=== PATIENT | female | born 1940 | race Asian ===

== ENCOUNTER 2017-05-19 09:29 | Observation (INO) | payer OTHER ==
[2017-05-19] MEDS ORDERED: SODIUM CHLORIDE 250 ML IV STA (10:12)
[2017-05-19 10:54] LABS: BASOPHIL 0.3 % (0-2.0); EOSINOPHIL 2.2 % (0-4.5); MCH 33.4 pg (25.7-33.7); MCHC 32.5 g/dl (32.0-36.0); MEAN CELL VOLUME 102.8 fl (80-96); MEAN PLT VOLUME 8.9 fl (7.5-11.1); PLATELET COUNT 89 K/MM3 (134-434); RDW 18.6 % (11.6-15.6); WHITE BLOOD COUNT 4.1 K/mm3 (4.0-10.0)
--- NOTE | 2017-05-19 11:09 | PDOC ---
History of Present Illness - History of Present Illness Initial Comments: 05/19/17 11:04 "The patient is a 76 year old female, with a significant past medical history of ESRD(on dialysis M,W,F), Hepatitis B, Hepatocellular carcinoma (s/p radiation therapy and embolization), hypertension, and hyperlipidemia, who presents to the Emergency Department from [facility] for evaluation of tachycardia since this morning. Per EMS the patients heart rate was 108 bpm during transport. Patient reports she does not know why she was brought into the hospital today as she has no complaints. She denies any chest pain, shortness of breath, diaphoresis or palpitations. As per daughter she does not have any history of arrhythmias. Pt was last seen by her motor coach tour operator a few months ago when she was cleared for her embolization procedure. She denies any fever, chills, or cough. She denies any abdominal pain , nausea, vomiting, diarrhea, constipation, or changes in urination patterns. She denies any recent travel or sick contacts. Pt does note L shoulder pain that she has had for 10 days since she tripped and fell. Denies headstrike/LOC. Denies BENAVIDEZ/N/V. Pt received 3 hours of HD today. She states that she typically get 4 hours. Allergies: NKDA Past Surgical History: Social History: Patient speaks Kazakh. Non smoker. No ETOH or recreational drug use. PCP: Dr. Alisson Bowens ([phone]) Dividend Clerk: Dr. Mary Anne Mcbride " <Vickey Walker - Last Filed: 05/19/17 12:43> <Danielle Hobbs - Last Filed: 05/19/17 13:37> - General Chief Complaint: Tachycardia Stated Complaint: TACHYCARDIA Time Seen by Provider: 05/19/17 09:32 Past History - Past Medical History Dialysis: Yes (M-W-F) Liver Disease: Yes (HEP B) - Suicide/Smoking/Psychosocial Hx Smoking History: Never smoked <Vickey Walker - Last Filed: 05/19/17 12:43> <Danielle Hobbs - Last Filed: 05/19/17 13:37> - Past Medical History Allergies/Adverse Reactions: Allergies Allergy/AdvReac Type Severity Reaction Status Date / Time No Known Allergies Allergy Verified 05/19/17 09:59 Home Medications: Ambulatory Orders Hydromorphone [Dilaudid -] 2 mg PO BID 05/19/17 Review of Systems - Review of Systems Comments:: 05/19/17 11:06 "GENERAL/CONSTITUTIONAL: No fever or chills. No weakness. HEAD, EYES, EARS, NOSE AND THROAT: No change in vision. No ear pain or discharge. No sore throat. CARDIOVASCULAR: No chest pain or shortness of breath. RESPIRATORY: No cough, wheezing, or hemoptysis. GASTROINTESTINAL: No nausea, vomiting, diarrhea or constipation. GENITOURINARY: No dysuria, frequency, or change in urination. MUSCULOSKELETAL: Yes: left shoulder pain. No other joint or muscle swelling or pain. No neck or back pain. SKIN: No rash NEUROLOGIC: No headache, vertigo, loss of consciousness, or change in strength/ sensation. ENDOCRINE: No increased thirst. No abnormal weight change. HEMATOLOGIC/LYMPHATIC: No anemia, easy bleeding, or history of blood clots. ALLERGIC/IMMUNOLOGIC: No hives or skin allergy." <Vickey Walker - Last Filed: 05/19/17 12:43> *Physical Exam - Vital Signs Last Vital Signs Temp Pulse Resp BP Pulse Ox 98.1 F 99 H 18 140/80 97 05/19/17 09:32 05/19/17 09:32 05/19/17 09:32 05/19/17 09:32 05/19/17 09:32 - Physical Exam Comments: 05/19/17 11:07 "GENERAL: Awake, alert, and fully oriented, in no acute distress HEAD: No signs of trauma EYES: PERRLA, EOMI, sclera anicteric, conjunctiva clear ENT: Auricles normal inspection, hearing grossly normal, nares patent, oropharynx clear without exudates. Moist mucosa NECK: Nontender, no stepoffs, Normal ROM, supple, no lymphadenopathy, JVD, or masses LUNGS: Breath sounds equal, clear to auscultation bilaterally. No wheezes, and no crackles HEART: irregularly irregular, normal S1 and S2, no murmurs, rubs or gallops ABDOMEN: Soft, nontender, normoactive bowel sounds. No guarding, no rebound. No masses EXTREMITIES: Normal range of motion, no edema. No clubbing or cyanosis. No cords, erythema, or tenderness NEUROLOGICAL: Cranial nerves II through XII intact. 5/5 strength and sensation in all extremities, Normal speech, normal gait SKIN: Warm, Dry, normal turgor, no rashes or lesions noted. " <Ou,Vickey - Last Filed: 05/19/17 12:43> - Vital Signs Last Vital Signs Temp Pulse Resp BP Pulse Ox 98.1 F 99 H 18 140/80 97 05/19/17 09:32 05/19/17 09:32 05/19/17 09:32 05/19/17 09:32 05/19/17 09:32 <Danielle Hobbs - Last Filed: 05/19/17 13:37> Heart Score/ECG Review - ECG Impressions Comment:: 05/19/17 11:08 atrial fibrillation with rate 108, no CARMELO/STDs, no TWIs, axis wnl <Ou,Vickey - Last Filed: 05/19/17 12:43> ED Treatment Course - LABORATORY CBC & Chemistry Diagram: 05/19/17 10:10 05/19/17 10:35 - ADDITIONAL ORDERS Additional order review: 05/19/17 10:10 RBC 3.43 L MCV 102.8 H MCHC 32.5 RDW 18.6 H MPV 8.9 Neutrophils % 70.0 Lymphocytes % 10.5 Monocytes % 17.0 H Eosinophils % 2.2 Basophils % 0.3 - RADIOLOGY Radiology Studies Ordered: Category Date Time Status CHEST PA & LAT [RAD] Stat Radiology 05/19/17 10:11 Ordered SHOULDER-LEFT [RAD] Stat Radiology 05/19/17 10:24 Ordered - Medications Given in the ED: ED Medications Discontinued Medications Generic Name Dose Route Start Last Admin Trade Name Freq PRN Reason Stop Dose Admin Sodium Chloride 250 mls @ 1,000 mls/hr 05/19/17 10:12 05/19/17 10:14 Normal Saline - IV 05/19/17 10:26 1,000 mls/hr ASDIR STA Administration <Ou,Vickey - Last Filed: 05/19/17 12:43> - LABORATORY CBC & Chemistry Diagram: 05/19/17 10:10 05/19/17 10:35 - ADDITIONAL ORDERS Additional order review: Laboratory Results 05/19/17 05/19/17 05/19/17 10:35 10:35 10:35 PT with INR 11.40 INR 1.01 PTT (Actin FS) 29.3 Sodium 134 L Potassium 3.5 Chloride 95 L Carbon Dioxide 28 Anion Gap 11 BUN 23 H Creatinine 3.7 H Creat Clearance w eGFR 11.91 Random Glucose 335 H* Calcium 8.9 Total Bilirubin 0.5 AST 82 H ALT 68 Alkaline Phosphatase 393 H Creatine Kinase 31 Troponin I 0.07 H B-Natriuretic Peptide 93657.38 H Total Protein 8.5 H Albumin 3.0 L TSH Blood Type Antibody Screen 05/19/17 05/19/17 10:11 10:10 PT with INR INR PTT (Actin FS) Sodium Potassium Chloride Carbon Dioxide Anion Gap BUN Creatinine Creat Clearance w eGFR Random Glucose Calcium Total Bilirubin AST ALT Alkaline Phosphatase Creatine Kinase Troponin I B-Natriuretic Peptide Total Protein Albumin TSH 1.02 Blood Type A POSITIVE Antibody Screen Negative 05/19/17 10:10 RBC 3.43 L MCV 102.8 H MCHC 32.5 RDW 18.6 H MPV 8.9 Neutrophils % 70.0 Lymphocytes % 10.5 Monocytes % 17.0 H Eosinophils % 2.2 Basophils % 0.3 - RADIOLOGY Radiograph Interpretation: 05/19/17 13:36 EXAM: Shoulder XR INTERPRETED BY: Dr. Mensah REVIEWED BY: Dr. Walker IMPRESSION: No acute pathology. - Medications Given in the ED: ED Medications Discontinued Medications Generic Name Dose Route Start Last Admin Trade Name Freq PRN Reason Stop Dose Admin Diltiazem HCl 30 mg 05/19/17 11:14 05/19/17 11:17 Cardizem - PO 05/19/17 11:15 30 mg ONCE ONE Administration Sodium Chloride 250 mls @ 1,000 mls/hr 05/19/17 10:12 05/19/17 10:14 Normal Saline - IV 05/19/17 10:26 1,000 mls/hr ASDIR STA Administration <Danielle Hobbs - Last Filed: 05/19/17 13:37> Medical Decision Making - Medical Decision Making 05/19/17 11:08 76 F with new onset afib. Pt asymptomatic at this time. It is possible pt went into afib 2/2 fluid shifts during HD. However, pt has not had EKG for weeks, and we cannot confirm that pt has not been in afib previously. Given unknown time of onset, will opt for rate control rather than rhythm control. Pt with chadsvasc score of 5 and will need to be started on AC. - Labs - 250 cc bolus to see if tachycardia is fluid responsive, as pt was just dialyzed - Rate control - echo - Admit tele 05/19/17 12:41 CBC,CMP WBC 4.1 K/mm3 (4.0-10.0) 05/19/17 10:10 RBC 3.43 M/mm3 (3.60-5.2) L 05/19/17 10:10 Hgb 11.5 GM/dL (10.7-15.3) 05/19/17 10:10 Hct 35.2 % (32.4-45.2) 05/19/17 10:10 MCV 102.8 fl (80-96) H 05/19/17 10:10 MCH 33.4 pg (25.7-33.7) 05/19/17 10:10 MCHC 32.5 g/dl (32.0-36.0) 05/19/17 10:10 RDW 18.6 % (11.6-15.6) H 05/19/17 10:10 Plt Count 89 K/MM3 (134-434) L 05/19/17 10:10 MPV 8.9 fl (7.5-11.1) 05/19/17 10:10 Neutrophils % 70.0 % (42.8-82.8) 05/19/17 10:10 Lymphocytes % 10.5 % (8-40) 05/19/17 10:10 Monocytes % 17.0 % (3.8-10.2) H 05/19/17 10:10 Eosinophils % 2.2 % (0-4.5) 05/19/17 10:10 Basophils % 0.3 % (0-2.0) 05/19/17 10:10 Sodium 134 mmol/L (136-145) L 05/19/17 10:35 Potassium 3.5 mmol/L (3.5-5.1) 05/19/17 10:35 Chloride 95 mmol/L (98-107) L 05/19/17 10:35 Carbon Dioxide 28 mmol/L (21-32) 05/19/17 10:35 Anion Gap 11 (8-16) 05/19/17 10:35 BUN 23 mg/dL (7-18) H 05/19/17 10:35 Creatinine 3.7 mg/dL (0.55-1.02) H 05/19/17 10:35 Creat Clearance w eGFR 11.91 (>60) 05/19/17 10:35 Random Glucose 335 mg/dL (74-106) H* 05/19/17 10:35 Calcium 8.9 mg/dL (8.5-10.1) 05/19/17 10:35 Total Bilirubin 0.5 mg/dL (0.2-1.0) 05/19/17 10:35 AST 82 U/L (15-37) H 05/19/17 10:35 ALT 68 U/L (12-78) 05/19/17 10:35 Alkaline Phosphatase 393 U/L (45-117) H 05/19/17 10:35 Creatine Kinase 31 IU/L (26-192) 05/19/17 10:35 Troponin I 0.07 ng/ml (0.00-0.05) H 05/19/17 10:35 B-Natriuretic Peptide 37521.38 pg/ml (5-450) H 05/19/17 10:35 Total Protein 8.5 g/dl (6.4-8.2) H 05/19/17 10:35 Albumin 3.0 g/dl (3.4-5.0) L 05/19/17 10:35 TSH 1.02 uIU/ml (0.358-3.74) 05/19/17 10:11 Pt with mild troponin leak, likely demand ischemia in the context of new afib. Pt now rate controlled s/p dilt 30mg PO. Admitted to hospitalist for further work up of afib, including echo and anticoagulation. Case discussed in detail with admitting physician including history, physical exam and ancillary studies. Admitting physician has assumed care for the patient and will follow all pending diagnostics and complete the evaluation and treatment. <Vickey Walker - Last Filed: 05/19/17 12:43> - Medical Decision Making 05/19/17 12:07 First call placed to Dr. Bowens at 10:20. Awaiting call back. <Danielle Hobbs - Last Filed: 05/19/17 13:37> *DC/Admit/Observation/Transfer - Discharge Dispostion Admit: Yes - Attestations Physician Attestion: 05/19/17 12:43 I, Dr. Vickey Walker MD, attest that this document has been prepared under my direction and personally reviewed by me in its entirety. I further attest, that it accurately reflects all work, treatment, procedures and medical decision -making performed by me. <Vickey Walker - Last Filed: 05/19/17 12:43> - Attestations Scribe Attestion: 05/19/17 12:07 Documentation prepared by Danielle Hobbs, acting as nuclear medical technologist for Vickey Walker MD. <Danielle Hobbs - Last Filed: 05/19/17 13:37> Diagnosis at time of Disposition: New onset atrial fibrillation - Referrals
[2017-05-19] MEDS ORDERED: dilTIAZem HCL 30 MG TABLET (FP) PO ONE (11:14)
[2017-05-19] MEDS ORDERED: dilTIAZem HCL 30 MG TABLET (FP) ONE (11:16)
[2017-05-19 11:20] LABS: ANION GAP 11 (8-16); BILIRUBIN,TOTAL 0.5 mg/dL (0.2-1.0); CALCIUM 8.9 mg/dL (8.5-10.1); CO2 28 mmol/L (21-32); CREATININE 3.7 mg/dL (0.55-1.02); SGOT/AST 82 U/L (15-37); SGPT/ALT 68 U/L (12-78); TOT PROT 8.5 g/dl (6.4-8.2)
[2017-05-19 11:23] LABS: INR 1.01 (0.82-1.09); PROTHROMBIN TIME (PATIENT) 11.4 SEC (9.98-11.88)
[2017-05-19 11:34] LABS: ALK PHOS 393 U/L (45-117); CPK 31 IU/L (26-192); TROPONIN I 0.07 ng/ml (0.00-0.05)
[2017-05-19 11:47] LABS: GLUCOSE,RANDOM 335 mg/dL (74-106)
[2017-05-19] MEDS ORDERED: INSULIN REGULAR HUMAN 100 UNITS/ML *VIAL IVPUSH ONE (12:03)
[2017-05-19 13:46] VITALS: BMI 24.3
--- NOTE | 2017-05-19 18:11 | HP ---
CHIEF COMPLAINT: sent from HD for irregular HR PCP: does not know HISTORY OF PRESENT ILLNESS: This is a 76yo woman with PMH: hepatocellular carcinoma, HBV, HTN, DM, ESRD on HD who presents today with afib while at dialysis. Patient denies any complaints and was unaware of the reason for being in the hospital. She received 3hours of HD today- usually has 4 hours. ER course was notable for: (1) EKG- Afib with rate 108 (2) Recent Travel: denies PAST MEDICAL HISTORY: see HPI PAST SURGICAL HISTORY: see HPI Social History: Smoking: denies Alcohol: denies Drugs: denies Family History: Allergies No Known Allergies Allergy (Verified 05/19/17 09:59) HOME MEDICATIONS: Home Medications Medication Instructions Recorded Amlodipine Besylate [Norvasc -] 10 mg PO DAILY 05/19/17 Carvedilol [Coreg] 6.25 mg PO BID 05/19/17 Cinacalcet HCl [Sensipar] 30 mg PO DAILY 05/19/17 Duloxetine HCl 60 mg PO DAILY 05/19/17 Furosemide [Lasix] 80 mg PO 05/19/17 Hydromorphone [Dilaudid -] 2 mg PO BID 05/19/17 Losartan Potassium 25 mg PO DAILY 05/19/17 Sevelamer Carbonate [Renvela] 1,600 mg PO CM 05/19/17 Simvastatin [Zocor] 10 mg PO HS 05/19/17 REVIEW OF SYSTEMS CONSTITUTIONAL: Absent: fever, chills, diaphoresis, generalized weakness, malaise, loss of appetite, weight change HEENT: Absent: rhinorrhea, nasal congestion, throat pain, throat swelling, difficulty swallowing, mouth swelling, ear pain, eye pain, visual changes CARDIOVASCULAR: Absent: chest pain, syncope, palpitations, irregular heart rate, lightheadedness , peripheral edema RESPIRATORY: Absent: cough, shortness of breath, dyspnea with exertion, orthopnea, wheezing, stridor, hemoptysis GASTROINTESTINAL: Absent: abdominal pain, abdominal distension, nausea, vomiting, diarrhea, constipation, melena, hematochezia GENITOURINARY: Absent: dysuria, frequency, urgency, hesitancy, hematuria, flank pain, genital pain MUSCULOSKELETAL: Absent: myalgia, arthralgia, joint swelling, back pain, neck pain SKIN: Absent: rash, itching, pallor HEMATOLOGIC/IMMUNOLOGIC: Absent: easy bleeding, easy bruising, lymphadenopathy, frequent infections ENDOCRINE: Absent: unexplained weight gain, unexplained weight loss, heat intolerance, cold intolerance NEUROLOGIC: Absent: headache, focal weakness or paresthesias, dizziness, unsteady gait, seizure, mental status changes, bladder or bowel incontinence PSYCHIATRIC: Absent: anxiety, depression, suicidal or homicidal ideation, hallucinations. PHYSICAL EXAMINATION Vital Signs - 24 hr 05/19/17 05/19/17 13:00 16:30 Temperature 98.2 F Pulse Rate 92 H 84 Respiratory 18 14 Rate Blood Pressure 157/80 138/68 O2 Sat by Pulse 95 Oximetry (%) GENERAL: Awake, alert, and fully oriented, in no acute distress. HEAD: Normal with no signs of trauma. Poor dentition. EYES: Pupils equal, round and reactive to light, extraocular movements intact, sclera anicteric, conjunctiva clear. No lid lag. EARS, NOSE, THROAT: Ears normal, nares patent, oropharynx clear without exudates. Moist mucous membranes. NECK: Normal range of motion, supple without lymphadenopathy, JVD, or masses. LUNGS: Breath sounds equal, clear to auscultation bilaterally. No wheezes, and no crackles. No accessory muscle use. HEART: Regular rate and rhythm, normal S1 and S2 without murmur, rub or gallop. ABDOMEN: Soft, nontender, not distended, normoactive bowel sounds, no guarding, no rebound, no masses. No hepatomegaly or splenomegaly. MUSCULOSKELETAL: Normal range of motion at all joints. No bony deformities or tenderness. No CVA tenderness. UPPER EXTREMITIES: 2+ pulses, warm, well-perfused. No cyanosis. No clubbing. No peripheral edema. RUE AV fistula (+) bruit (+) thrill. LOWER EXTREMITIES: 2+ pulses, warm, well-perfused. No calf tenderness. No peripheral edema. NEUROLOGICAL: Cranial nerves II-XII intact. Normal speech. Normal gait. PSYCHIATRIC: Cooperative. Good eye contact. Appropriate mood and affect. SKIN: Warm, dry, normal turgor, no rashes or lesions noted, normal capillary refill. Laboratory Results - last 24 hr 05/19/17 16:30 POC Glucometer 138 ASSESSMENT/PLAN: A: 76yo woman with new onset afib. P: A-fib - Chads2 score- 5 - will start anticoagulation after echo - echo - trend trops - cards consult - tele HTN - Norvasc - Coreg - Losartan DM - FSBG qACHS - ISS ESRD on HD - renal conslt if still here on Wednesday F/E/N - low Na diabetic diet - replete prn PPX - will start AC therapy s/p echo Dispo- requires observation of her acute medical conditions Visit type - Emergency Visit Emergency Visit: Yes ED Registration Date: 05/19/17 Care time: The patient presented to the Emergency Department on the above date and was hospitalized for further evaluation of their emergent condition. - New Patient This patient is new to me today: Yes Date on this admission: 05/19/17 - Critical Care Critical Care patient: No
[2017-05-19] MEDS: SEVELAMER CARBONATE 800 MG TAB (FP) PO SCH ×2 (18:38)
[2017-05-19] MEDS: INSULIN SLIDING SCALE (NOVOLOG) 1 VIAL SQ SCH (21:20)
[2017-05-19] MEDS: HEPARIN NA (PORCINE) 5,000 UNITS/ML 1ML VIAL SQ SCH (21:25)
[2017-05-19] MEDS ORDERED: ATORVASTATIN CA 10 MG TABLET (FP) PO SCH (22:00)
[2017-05-20] MEDS: INSULIN SLIDING SCALE (NOVOLOG) 1 VIAL SQ SCH ×2 (06:15→11:19)
[2017-05-20 07:57] LABS: BASOPHIL 0.8 % (0-2.0); EOSINOPHIL 4.1 % (0-4.5); MCH 33.6 pg (25.7-33.7); MCHC 32.8 g/dl (32.0-36.0); MEAN CELL VOLUME 102.5 fl (80-96); MEAN PLT VOLUME 8.8 fl (7.5-11.1); NEUTROPHILS 59.8 % (42.8-82.8); PLATELET COUNT 101 K/MM3 (134-434); RDW 18.9 % (11.6-15.6); WHITE BLOOD COUNT 4.5 K/mm3 (4.0-10.0)
[2017-05-20 08:37] LABS: ALBUMIN 2.8 g/dl (3.4-5.0); ALK PHOS 306 U/L (45-117); ANION GAP 13 (8-16); BILIRUBIN,TOTAL 0.9 mg/dL (0.2-1.0); CALCIUM 9.2 mg/dL (8.5-10.1); CO2 26 mmol/L (21-32); CREATININE 5.9 mg/dL (0.55-1.02); GLUCOSE,RANDOM 119 mg/dL (74-106); MAGNESIUM 2.9 mg/dL (1.8-2.4); PHOSPHOROUS 4.5 mg/dL (2.5-4.9); SGOT/AST 51 U/L (15-37); SGPT/ALT 52 U/L (12-78); TOT PROT 7.5 g/dl (6.4-8.2)
[2017-05-20] MEDS: SEVELAMER CARBONATE 800 MG TAB (FP) PO SCH ×2 (08:55→11:23)
[2017-05-20] MEDS: HEPARIN NA (PORCINE) 5,000 UNITS/ML 1ML VIAL SQ SCH (09:22)
[2017-05-20] MEDS ORDERED: CINACALCET HCL 30 MG TAB (FP) PO SCH (10:00)
[2017-05-20] MEDS ORDERED: DULoxetine HCL 30 MG CAPSULE.DR (FP) PO SCH (10:00)
[2017-05-20] MEDS ORDERED: LOSARTAN POTASSIUM 25 MG TABLET PO SCH (10:00)
[2017-05-20] MEDS ORDERED: PATIENT'S OWN MEDICATION (NON-FORMULARY) (Furosemide [Lasix] 80 MG) PO SCH (10:00)
[2017-05-20] MEDS ORDERED: amLODIPine BESYLATE 10 MG TABLET (FP) PO SCH (10:00)
[2017-05-20 10:42] VITALS: BP 182/90; PULSE 92; TEMP 98
--- NOTE | 2017-05-20 13:03 | EKG ---
Test Reason : Blood Pressure : / mmHG Vent. Rate : 108 BPM Atrial Rate : 250 BPM P-R Int : 000 ms QRS Dur : 076 ms QT Int : 364 ms P-R-T Axes : 000 -20 104 degrees QTc Int : 487 ms ATRIAL FIBRILLATION WITH RAPID VENTRICULAR RESPONSE MODERATE VOLTAGE CRITERIA FOR LVH, MAY BE NORMAL VARIANT ABNORMAL ECG NO PREVIOUS ECGS AVAILABLE Confirmed by GLORY ABEL MD ([id number]) on 05/20/2017 1:02:52 PM Referred By: Confirmed By:GLORY ABEL MD
--- NOTE | 2017-05-20 13:51 | CON.CARD ---
Consult Consult Specialty:: Cardiology Referred by:: Jona Reason for Consultation:: PAF - History of Present Illness Chief Complaint: sent from HD for PAF History of Present Illness: She is a 76yo woman with a history of hepatocellular carcinoma s/p ablation and radiation last treatment 3 weeks ago followed at [facility], HBV, HTN, DM off medicine, ESRD on HD sent from HD due to afib with RVR. No symptoms at the time. Her daughter reports a normal echo and stress test 2 months ago before procedures at [facility]. Spontaneously converted to NSR. - History Source History Provided By: Family Member, Medical Record Limitations to Obtaining History: Language Barrier - Smoking History Smoking history: Never smoked Home Medications - Allergies Allergies/Adverse Reactions: Allergies Allergy/AdvReac Type Severity Reaction Status Date / Time No Known Allergies Allergy Verified 05/19/17 09:59 - Home Medications Home Medications: Ambulatory Orders Amlodipine Besylate [Norvasc -] 10 mg PO DAILY 05/19/17 Carvedilol [Coreg] 6.25 mg PO BID 05/19/17 Cinacalcet HCl [Sensipar] 30 mg PO DAILY 05/19/17 Duloxetine HCl 60 mg PO DAILY 05/19/17 Furosemide [Lasix] 80 mg PO 05/19/17 Hydromorphone [Dilaudid -] 2 mg PO BID 05/19/17 Losartan Potassium 25 mg PO DAILY 05/19/17 Sevelamer Carbonate [Renvela] 1,600 mg PO CM 05/19/17 Simvastatin [Zocor] 10 mg PO HS 05/19/17 Vital Signs: Vital Signs Temperature 98 F 05/20/17 10:00 Pulse Rate 92 H 05/20/17 10:00 Respiratory Rate 18 05/20/17 10:00 Blood Pressure 182/90 05/20/17 10:00 O2 Sat by Pulse Oximetry (%) 97 05/20/17 09:00 Constitutional: Yes: Well Nourished, No Distress Eyes: Yes: Conjunctiva Clear, EOM Intact HENT: Yes: Atraumatic, Normocephalic Neck: Yes: Supple, Trachea Midline Respiratory: Yes: CTA Bilaterally Gastrointestinal: Yes: Normal Bowel Sounds, Soft Renal/: Yes: WNL Cardiovascular: Yes: Regular Rate and Rhythm JVD: No Carotid Bruit: No PMI: Non-Displaced Heart Sounds: Yes: S1, S2 Edema: No Peripheral Pulses WNL: Yes - Other Data Labs, Other Data: CBC, BMP 05/20/17 05:25 05/20/17 05:25 INR, PTT INR 1.01 (0.82-1.09) 05/19/17 10:35 Troponin, BNP 05/19/17 18:30 Troponin I 0.09 H Troponin, BNP 05/19/17 18:30 Troponin I 0.09 H Imaging - Results X-ray: Report Reviewed (danya) EKG: Report Reviewed (af rvr) Problem List - Problems (1) New onset atrial fibrillation Assessment/Plan: She has an elevated CHADS2 score but she has active Hepatocellular carcinoma just done with XRT and is at high risk of bleeding. She has a counseling center manager at [facility] ([place]) who can follow her. Would defer AC for now. No need for inpatient testing. will see prn. Code(s): I48.91 - UNSPECIFIED ATRIAL FIBRILLATION
--- NOTE | 2017-05-20 14:07 | CON.NEP ---
Consult Consult Specialty:: Nephrology Referred by:: Mary Reason for Consultation:: ESRD on HD - History of Present Illness Chief Complaint: Rapid afib History of Present Illness: This is a 76 year old woman with PMhx of ESRD on HD (MWF x 7 years), Hypertension, DM, HCC s/p ablation/chemo who presented with rapid HR from the HD unit and found to have afib with RVR. Pt denied feeling any palpitations, CP , SOB at the time. s/p ED admission pt converted to SR. Pt seen by cardiology. s /p 2.5 hours of HD yesterday (regular HD x 3 hours). - History Source History Provided By: Patient, Family Member Limitations to Obtaining History: No Limitations - Smoking History Smoking history: Never smoked Home Medications - Allergies Allergies/Adverse Reactions: Allergies Allergy/AdvReac Type Severity Reaction Status Date / Time No Known Allergies Allergy Verified 05/19/17 09:59 - Home Medications Home Medications: Ambulatory Orders Amlodipine Besylate [Norvasc -] 10 mg PO DAILY 05/19/17 Carvedilol [Coreg] 6.25 mg PO BID 05/19/17 Cinacalcet HCl [Sensipar] 30 mg PO DAILY 05/19/17 Duloxetine HCl 60 mg PO DAILY 05/19/17 Furosemide [Lasix] 80 mg PO 05/19/17 Hydromorphone [Dilaudid -] 2 mg PO BID 05/19/17 Losartan Potassium 25 mg PO DAILY 05/19/17 Sevelamer Carbonate [Renvela -] 1,600 mg PO CM 05/19/17 Simvastatin [Zocor -] 10 mg PO HS 05/19/17 Family Disease History - Family Disease History Family History: Unremarkable Review of Systems - Review of Systems Constitutional: reports: No Symptoms Eyes: reports: No Symptoms HENT: reports: No Symptoms Neck: reports: No Symptoms Cardiovascular: reports: No Symptoms Respiratory: reports: No Symptoms Gastrointestinal: reports: No Symptoms Musculoskeletal: reports: No Symptoms Integumentary: reports: No Symptoms Neurological: reports: No Symptoms Nephrology Consult - Height Height: 4 ft 9 in - Weight Weight: 112 lb 6.972 oz - BMI Body Mass Index (BMI): 24.3 - Lab Results CBC,BMP: CBC, BMP 05/20/17 05:25 05/20/17 05:25 Anion Gap: Anion Gap Anion Gap 13 (8-16) 05/20/17 05:25 - Imaging Chest X-ray: Report Reviewed EKG: Report Reviewed - Physical Examination Vital Signs: Vital Signs Temperature 98 F 05/20/17 10:00 Pulse Rate 92 H 05/20/17 10:00 Respiratory Rate 18 05/20/17 10:00 Blood Pressure 182/90 05/20/17 10:00 O2 Sat by Pulse Oximetry (%) 97 05/20/17 09:00 Constitutional: Yes: No Distress, Calm HENT: Yes: Atraumatic, Normocephalic Neck: Yes: Supple Cardiovascular: Yes: Regular Rate and Rhythm Respiratory: Yes: Regular, CTA Bilaterally. No: Rales, Rhonchi, Wheezes Gastrointestinal: Yes: Normal Bowel Sounds, Soft. No: Tenderness Extremities: No: Cold, Cool, Cyanosis Neurological: Yes: Alert, Oriented Problem List - Problems (1) ESRD (end stage renal disease) on dialysis Code(s): N18.6 - END STAGE RENAL DISEASE Z99.2 - DEPENDENCE ON RENAL DIALYSIS (2) Afib Code(s): I48.91 - UNSPECIFIED ATRIAL FIBRILLATION (3) Hepatocellular carcinoma Code(s): C22.0 - LIVER CELL CARCINOMA Assessment/Plan 76 year old woman with PMhx of ESRD on HD (MWF x 7 years), Hypertension, DM, HCC s/p ablation/chemo who presented with rapid HR from the HD unit and found to have afib with RVR. #Rapid Afib now in NSR seen by cardiology not on BB Tele monitoring to follow with outpatient profile saw operator on D/c #ESRD on HD pt s/p 2.5 hours of dialysis yesterday no indication for ART INSTRUCTOR today to resume outpatient dialysis tomorrow Thank you stable for D/c from renal perspective Nelson Hinds DO Current Medications Amlodipine Besylate (Norvasc -) 10 mg PO DAILY [facility] Last Admin: 05/20/17 09:22 Dose: 10 mg Atorvastatin Calcium (Lipitor -) 10 mg PO HS [facility] Last Admin: 05/19/17 21:26 Dose: 10 mg Cinacalcet (Sensipar -) 30 mg PO DAILY [facility] Last Admin: 05/20/17 09:23 Dose: 30 mg Duloxetine HCl (Cymbalta -) 60 mg PO DAILY [facility] Last Admin: 05/20/17 09:22 Dose: 60 mg Heparin Sodium (Porcine) (Heparin -) 5,000 unit SQ BID [facility] Last Admin: 05/20/17 09:22 Dose: 5,000 unit Insulin Aspart (Novolog Vial Sliding Scale -) 1 vial SQ ACHS [facility] PRN Reason: Protocol Last Admin: 05/20/17 11:19 Dose: Not Given Losartan Potassium (Cozaar -) 25 mg PO DAILY [facility] Last Admin: 05/20/17 09:22 Dose: 25 mg Sevelamer Carbonate (Renvela -) 1,600 mg PO CM [facility] Last Admin: 05/20/17 11:23 Dose: 1,600 mg
--- NOTE | 2017-05-20 14:13 | DS ---
Physical Exam: SUBJECTIVE: Patient seen and examined OBJECTIVE: NSR 85 on manager monitoring. Cleared by cardiology and renal for discharge today Patient to resume dialysis tomorrow, and follow up with her home dry wall installer Vital Signs Period Temp Pulse Resp BP Sys/Landry Pulse Ox Last 24 Hr 98 F-98.6 F 81-92 14-18 138-182/68-90 95-97 PHYSICAL EXAM GENERAL: Awake, alert, and fully oriented, in no acute distress. HEAD: Normal with no signs of trauma. Poor dentition. EYES: Pupils equal, round and reactive to light, extraocular movements intact, sclera anicteric, conjunctiva clear. No lid lag. EARS, NOSE, THROAT: Ears normal, nares patent, oropharynx clear without exudates. Moist mucous membranes. NECK: Normal range of motion, supple without lymphadenopathy, JVD, or masses. LUNGS: Breath sounds equal, clear to auscultation bilaterally. No wheezes, and no crackles. No accessory muscle use. HEART: Regular rate and rhythm, normal S1 and S2 without murmur, rub or gallop. ABDOMEN: Soft, nontender, not distended, normoactive bowel sounds, no guarding, no rebound, no masses. No hepatomegaly or splenomegaly. MUSCULOSKELETAL: Normal range of motion at all joints. No bony deformities or tenderness. No CVA tenderness. UPPER EXTREMITIES: 2+ pulses, warm, well-perfused. No cyanosis. No clubbing. No peripheral edema. RUE AV fistula (+) bruit (+) thrill. LOWER EXTREMITIES: 2+ pulses, warm, well-perfused. No calf tenderness. No peripheral edema. NEUROLOGICAL: Cranial nerves II-XII intact. Normal speech. Normal gait. PSYCHIATRIC: Cooperative. Good eye contact. Appropriate mood and affect. SKIN: Warm, dry, normal turgor, no rashes or lesions noted, normal capillary refill. LABS Laboratory Results - last 24 hr 05/19/17 05/19/17 05/19/17 16:30 18:30 21:03 WBC RBC Hgb Hct MCV MCH MCHC RDW Plt Count MPV Neutrophils % Lymphocytes % Monocytes % Eosinophils % Basophils % Sodium Potassium Chloride Carbon Dioxide Anion Gap BUN Creatinine Creat Clearance w eGFR POC Glucometer 138 141 Random Glucose Calcium Phosphorus Magnesium Total Bilirubin AST ALT Alkaline Phosphatase Troponin I 0.09 H Total Protein Albumin 05/20/17 05/20/1705/20/17 05:25 05:25 06:13 WBC 4.5 RBC 3.08 L Hgb 10.4 L Hct 31.6 L MCV 102.5 H MCH 33.6 MCHC 32.8 RDW 18.9 H Plt Count 101 L MPV 8.8 Neutrophils % 59.8 Lymphocytes % 14.2 D Monocytes % 21.1 H Eosinophils % 4.1 D Basophils % 0.8 Sodium 135 L Potassium 4.5 D Chloride 96 L Carbon Dioxide 26 Anion Gap 13 BUN 57 H D Creatinine 5.9 H D Creat Clearance w eGFR 6.95 POC Glucometer 129 Random Glucose 119 H D Calcium 9.2 Phosphorus 4.5 Magnesium 2.9 H Total Bilirubin 0.9 D AST 51 H D ALT 52 D Alkaline Phosphatase 306 H D Troponin I Total Protein 7.5 Albumin 2.8 L 05/20/17 11:17 WBC RBC Hgb Hct MCV MCH MCHC RDW Plt Count MPV Neutrophils % Lymphocytes % Monocytes % Eosinophils % Basophils % Sodium Potassium Chloride Carbon Dioxide Anion Gap BUN Creatinine Creat Clearance w eGFR POC Glucometer 129 Random Glucose Calcium Phosphorus Magnesium Total Bilirubin AST ALT Alkaline Phosphatase Troponin I Total Protein Albumin HOSPITAL COURSE: Date of Admission:05/19/17 Date of Discharge: 05/20/17 Patient is a 76 year old woman with new onset atrial fibrillation. Afib, now back to NSR 85 Patient remains asymptomatic, cleared by cardiology for discharge home with follow up with her home dry wall installer Johnnie cooper trending ESRD on HD Renal evaluated pt prior to d/c Patient scheduled for dialysis tomorrow at her home center Discharge Summary Reason For Visit: NEW ONSET ATRIAL FIB Current Active Problems Afib (Acute) ESRD (end stage renal disease) on dialysis (Acute) Hepatocellular carcinoma (Acute) New onset atrial fibrillation (Acute) Condition: Stable - Instructions Diet, Activity, Other Instructions: Mrs. Mary: Please follow up with your dry wall installer within 3 days after discharge. Please resume your outpatient dialysis tomorrow. Please continue all your home medications as ordered. Please call me with any questions that you may have. Malathi Doyle [facility] @ [facility] [phone] Referrals: Mary Anne Mcbride MD [Primary Care Provider] - Disposition: HOME - Home Medications Comprehensive Discharge Medication List: Ambulatory Orders Amlodipine Besylate [Norvasc -] 10 mg PO DAILY 05/19/17 Carvedilol [Coreg] 6.25 mg PO BID 05/19/17 Cinacalcet HCl [Sensipar] 30 mg PO DAILY 05/19/17 Duloxetine HCl 60 mg PO DAILY 05/19/17 Furosemide [Lasix] 80 mg PO 05/19/17 Hydromorphone [Dilaudid -] 2 mg PO BID 05/19/17 Losartan Potassium 25 mg PO DAILY 05/19/17 Sevelamer Carbonate [Renvela -] 1,600 mg PO CM 05/19/17 Simvastatin [Zocor -] 10 mg PO HS 05/19/17
== END 2017-05-20 14:45 | disposition home or self-care (01) ==
LOC: JER 09:29 → JERBED 12:43 → J4W 16:11
PROVIDERS: ADMIT Internal Medicine; ATTEND Nurse Practitioner Family
PROC: 3E033VG Introduction of Insulin into Peripheral Vein, Percutaneous Approach (ICD-10-PCS; principal; 2017-05-19)
PROC: 3E013GC Introduction of Other Therapeutic Substance into Subcutaneous Tissue, Percutaneous Approach (ICD-10-PCS; 2017-05-19)
PROC: 3E0337Z Introduction of Electrolytic and Water Balance Substance into Peripheral Vein, Percutaneous Approach (ICD-10-PCS; 2017-05-19)
DX: I48.91 Unspecified atrial fibrillation (principal); I12.0 Hypertensive chronic kidney disease with stage 5 chronic kidney disease or end stage renal disease; N18.6 End stage renal disease; Z99.2 Dependence on renal dialysis; E78.5 Hyperlipidemia, unspecified; B18.1 Chronic viral hepatitis B without delta-agent; C22.0 Liver cell carcinoma; Z92.3 Personal history of irradiation
CPT/HCPCS: 36415; 71020-TC; 73030-TC-LT; 80053; 82550; 83735; 83880; 84100; 84443; 84484; 85025; 85610; 85730; 86850; 86900; 86901; 93005; 93010; 93306-TC; 96372; 96374; 99285-25; G0378; J1644

== ENCOUNTER 2017-06-14 10:48 | Observation (INO) | payer OTHER ==
[2017-06-14 11:15] VITALS: BMI 23.8
[2017-06-14 12:22] LABS: BASOPHIL 0.5 % (0-2.0); MCH 34.3 pg (25.7-33.7); MCHC 32.9 g/dl (32.0-36.0); MEAN CELL VOLUME 104.2 fl (80-96); MEAN PLT VOLUME 7.8 fl (7.5-11.1); NEUTROPHILS 65.4 % (42.8-82.8); PLATELET COUNT 92 K/MM3 (134-434); RDW 16.8 % (11.6-15.6); WHITE BLOOD COUNT 4.8 K/mm3 (4.0-10.0)
[2017-06-14 12:44] LABS: ALBUMIN 2.8 g/dl (3.4-5.0); ANION GAP 9 (8-16); CALCIUM 8.3 mg/dL (8.5-10.1); CO2 29 mmol/L (21-32); GLUCOSE,RANDOM 270 mg/dL (74-106); MAGNESIUM 2.6 mg/dL (1.8-2.4)
[2017-06-14 12:46] LABS: BILIRUBIN,TOTAL 0.8 mg/dL (0.2-1.0); CREATININE 3.7 mg/dL (0.55-1.02); INR 0.99 (0.82-1.09); PROTHROMBIN TIME (PATIENT) 11.2 SEC (9.98-11.88); SGOT/AST 41 U/L (15-37); SGPT/ALT 35 U/L (12-78)
[2017-06-14 12:49] LABS: ACTIVATED PTT 30.4 SECONDS (26.9-34.4)
[2017-06-14 12:50] LABS: ALK PHOS 360 U/L (45-117); CPK 42 IU/L (26-192); TROPONIN I 0.08 ng/ml (0.00-0.05)
--- NOTE | 2017-06-14 13:36 | PDOC ---
History of Present Illness - General History Source: Patient, Family Exam Limitations: No Limitations <Abner Aguilar - Last Filed: 06/14/17 14:26> - General History Source: Patient, Family Exam Limitations: No Limitations - History of Present Illness Initial Comments: 06/14/17 13:44 The patient is a 76 year old female with a significant PMH of diabetes, HTN, hyperlipidemia, hepatocellular carcinoma (s/p radiation therapy and embolization ), and end stage renal disease (dialysis 3x/week) who presents to the emergency department via EMS with racing heartbeat s/p dialysis. The patient reports being at dialysis when the staff noted a racing heart and sent her to the ED for further evaluation. The patient notes that she has a weak heart but it is unclear exactly what she means. She also reports falling about a month ago and notes midback and left lower back pain since then. The patient denies any other complaints. This history is limited due to a language barrier ( Lao). The patient denies chest pain, shortness of breath, headache and dizziness. Denies fever, chills, nausea, vomit, diarrhea and constipation. Denies dysuria, frequency, urgency and hematuria. Allergies: NKA Past surgical history: None reported. Social history: No reported toxic habits. PCP: Dr. Bowens Track Production Engineer: Dr. Mary Anne Mcbride <Abner Rowley - Last Filed: 06/14/17 14:31> - General Chief Complaint: Irregular Heart Beat Stated Complaint: Irregular Heart Beat Time Seen by Provider: 06/14/17 11:30 Past History - Past Medical History COPD: No Diabetes: Yes (Wed) Dialysis: Yes (M-W-F) Liver Disease: Yes (HEP B) - Suicide/Smoking/Psychosocial Hx Smoking History: Never smoked Hx Alcohol Use: No Drug/Substance Use Hx: No <Abner Aguilar - Last Filed: 06/14/17 14:26> <Abner Rowley - Last Filed: 06/14/17 14:31> - Past Medical History Allergies/Adverse Reactions: Allergies Allergy/AdvReac Type Severity Reaction Status Date / Time No Known Allergies Allergy Verified 06/14/17 10:49 Home Medications: Ambulatory Orders Amlodipine Besylate [Norvasc -] 10 mg PO DAILY 05/19/17 Carvedilol [Coreg] 6.25 mg PO BID 10/18/17 Cinacalcet HCl [Sensipar] 30 mg PO DAILY 05/19/17 Duloxetine HCl 60 mg PO DAILY 05/19/17 Furosemide [Lasix] 80 mg PO DAILY 05/19/17 Hydromorphone [Dilaudid -] 2 mg PO BID 05/19/17 Losartan Potassium 25 mg PO DAILY 05/19/17 Sevelamer Carbonate [Renvela -] 1,600 mg PO CM 05/19/17 Simvastatin [Zocor -] 10 mg PO HS 05/19/17 Review of Systems - Review of Systems Able to Perform ROS?: Yes Comments:: 06/14/17 13:44 GENERAL/CONSTITUTIONAL: No fever or chills. No weakness. HEAD, EYES, EARS, NOSE AND THROAT: No change in vision. No ear pain or discharge. No sore throat. CARDIOVASCULAR: (+) Racing heart. No chest pain or shortness of breath. RESPIRATORY: No cough, wheezing, or hemoptysis. GASTROINTESTINAL: No nausea, vomiting, diarrhea or constipation. GENITOURINARY: No dysuria, frequency, or change in urination. MUSCULOSKELETAL: (+) Midback and left sided back pain. No joint pain. No neck pain. SKIN: No rash NEUROLOGIC: No headache, vertigo, loss of consciousness, or change in strength/ sensation. ENDOCRINE: No increased thirst. No abnormal weight change. HEMATOLOGIC/LYMPHATIC: No anemia, easy bleeding, or history of blood clots. ALLERGIC/IMMUNOLOGIC: No hives or skin allergy. <Abner Rowley - Last Filed: 06/14/17 14:31> *Physical Exam - Vital Signs Last Vital Signs Temp Pulse Resp BP Pulse Ox 98.8 F 106 H 24 145/84 97 06/14/17 11:10 06/14/17 13:00 06/14/17 13:00 06/14/17 13:00 06/14/17 13:00 <Abner Aguilar - Last Filed: 06/14/17 14:26> - Vital Signs Last Vital Signs Temp Pulse Resp BP Pulse Ox 98.8 F 106 H 24 145/84 97 06/14/17 11:10 06/14/17 13:00 06/14/17 13:00 06/14/17 13:00 06/14/17 13:00 - Physical Exam Comments: 06/14/17 13:45 GENERAL: Awake, alert, and fully oriented, in no acute distress HEAD: No signs of trauma EYES: PERRLA, EOMI, sclera anicteric, conjunctiva clear ENT: Auricles normal inspection, hearing grossly normal, nares patent, oropharynx clear without exudates. Moist mucosa NECK: Normal ROM, supple, no lymphadenopathy, JVD, or masses LUNGS: Breath sounds equal, clear to auscultation bilaterally. No wheezes, and no crackles HEART: Regular rate and rhythm, normal S1 and S2, no murmurs, rubs or gallops ABDOMEN: Soft, nontender, normoactive bowel sounds. No guarding, no rebound. No masses EXTREMITIES: (+) RUE fistula. Normal range of motion, no edema. No clubbing or cyanosis. No cords, erythema, or tenderness NEUROLOGICAL: Cranial nerves II through XII grossly intact. Normal speech. SKIN: Warm, Dry, normal turgor, no rashes or lesions noted. <Abner Rowley - Last Filed: 06/14/17 14:31> Heart Score/ECG Review #1 ECG reviewed & interpreted by me at: 11:05 06/14/17 13:30 NSR 108 with 1st degree AV block 212 msec, LVH with TWI I, aVL, QTC 584 msec, no std/steSTD V4-V5, TWI I, avL <Abner Aguilar - Last Filed: 06/14/17 14:26> ED Treatment Course - LABORATORY CBC & Chemistry Diagram: 06/14/17 11:58 06/14/17 11:58 - ADDITIONAL ORDERS Additional order review: Laboratory Results 06/14/17 06/14/17 06/14/17 11:58 11:58 11:58 PT with INR 11.20 INR 0.99 PTT (Actin FS) 30.4 Sodium 136 Potassium 3.8 Chloride 98 Carbon Dioxide 29 Anion Gap 9 BUN 18 D Creatinine 3.7 H D Creat Clearance w eGFR 11.91 Random Glucose 270 H D Calcium 8.3 L Phosphorus 2.5 D Magnesium 2.6 H Total Bilirubin 0.8 AST 41 H ALT 35 D Alkaline Phosphatase 360 H Creatine Kinase 42 Troponin I 0.08 H B-Natriuretic Peptide 88003.71 H Total Protein 8.0 Albumin 2.8 L 06/14/17 11:58 RBC 3.53 L MCV 104.2 H MCHC 32.9 RDW 16.8 H D MPV 7.8 D Neutrophils % 65.4 Lymphocytes % 14.9 Monocytes % 18.2 H Eosinophils % 1.0 Basophils % 0.5 - RADIOLOGY Radiology Studies Ordered: Category Date Time Status CHEST X-RAY PORTABLE* [RAD] Stat Radiology 06/14/17 11:37 Completed <Abner Aguilar - Last Filed: 06/14/17 14:26> - LABORATORY CBC & Chemistry Diagram: 06/14/17 11:58 06/14/17 11:58 - ADDITIONAL ORDERS Additional order review: Laboratory Results 06/14/17 06/14/17 06/14/17 11:58 11:58 11:58 PT with INR 11.20 INR 0.99 PTT (Actin FS) 30.4 Sodium 136 Potassium 3.8 Chloride 98 Carbon Dioxide 29 Anion Gap 9 BUN 18 D Creatinine 3.7 H D Creat Clearance w eGFR 11.91 Random Glucose 270 H D Calcium 8.3 L Phosphorus 2.5 D Magnesium 2.6 H Total Bilirubin 0.8 AST 41 H ALT 35 D Alkaline Phosphatase 360 H Creatine Kinase 42 Troponin I 0.08 H B-Natriuretic Peptide 02404.71 H Total Protein 8.0 Albumin 2.8 L 06/14/17 11:58 RBC 3.53 L MCV 104.2 H MCHC 32.9 RDW 16.8 H D MPV 7.8 D Neutrophils % 65.4 Lymphocytes % 14.9 Monocytes % 18.2 H Eosinophils % 1.0 Basophils % 0.5 - Additional Consults Time Called: 14:25 Consult/PCP: Dr. Russo (Cardio) <Abner Rowley - Last Filed: 06/14/17 14:31> Medical Decision Making - Medical Decision Making 06/14/17 14:19 A portion of this note was documented by scribe services under my direction. I have reviewed the details of the note, within reason, and agree with the documentation with the following case summary and management plan written by me. Patient treated in the ED. Nursing notes are reviewed and incorporated into the medical decision-making. Vital signs reviewed. Peripheral IV access obtained by the nurse, laboratory studies are drawn and sent, reviewed and interpreted by myself. Vital Signs Temp Pulse Resp BP Pulse Ox 98.8 F 106 H 24 145/84 97 06/14/17 11:10 06/14/17 13:00 06/14/17 13:00 06/14/17 13:00 06/14/17 13:00 76-year-old female with history of hypertension, diabetes, hyperlipidemia, metastatic carcinoma status post radiation therapy and embolization, ESRD on dialysis 3 times a week brought in by EMS for tachycardia. The patient was in her usual state health and undergoing routine dialysis. Patient completed nearly all of her dialysis until 10 min prior to completion, patient developed tachycardia. EMS was activated and patient is noted to be and supraventricular tachycardia with heart rate [address] depression in V3 through V6 without ST elevations. Patient denies any chest pain or shortness of breath at that time. Patient's SVT resolved and the ST depression improved. I had discussed the case with aerial lineman at [facility] Dr. Shirley (who covers for DR. Brink, her aerial lineman, , who states 3 years ago, pt had a stress test that was negative, echo with 44% EF. Otherwise, recommends that patient can stay at [facility] and does not need transfer. CBC, BMP 06/14/17 11:58 06/14/17 11:58 CMP Sodium 136 mmol/L (136-145) 06/14/17 11:58 Potassium 3.8 mmol/L (3.5-5.1) 06/14/17 11:58 Chloride 98 mmol/L (98-107) 06/14/17 11:58 Carbon Dioxide 29 mmol/L (21-32) 06/14/17 11:58 Anion Gap 9 (8-16) 06/14/17 11:58 BUN 18 mg/dL (7-18) D 06/14/17 11:58 Creatinine 3.7 mg/dL (0.55-1.02) H D 06/14/17 11:58 Creat Clearance w eGFR 11.91 (>60) 06/14/17 11:58 Random Glucose 270 mg/dL (74-106) H D 06/14/17 11:58 Calcium 8.3 mg/dL (8.5-10.1) L 06/14/17 11:58 Phosphorus 2.5 mg/dL (2.5-4.9) D 06/14/17 11:58 Magnesium 2.6 mg/dL (1.8-2.4) H 06/14/17 11:58 Total Bilirubin 0.8 mg/dL (0.2-1.0) 06/14/17 11:58 AST 41 U/L (15-37) H 06/14/17 11:58 ALT 35 U/L (12-78) D 06/14/17 11:58 Alkaline Phosphatase 360 U/L (45-117) H 06/14/17 11:58 Creatine Kinase 42 IU/L (26-192) 06/14/17 11:58 Troponin I 0.08 ng/ml (0.00-0.05) H 06/14/17 11:58 B-Natriuretic Peptide 31674.71 pg/ml (5-450) H 06/14/17 11:58 Total Protein 8.0 g/dl (6.4-8.2) 06/14/17 11:58 Albumin 2.8 g/dl (3.4-5.0) L 06/14/17 11:58 Patient's workup demonstrates mild troponinemia, which is likely chronic. Patient's ST depression has improved. Case discussed with DR. Flower who accepts patient to telemetry admission. Requests Dr. Dick for cardiology. DR. Dick paged and awaiting response. Case discussed in detail with admitting physician including history, physical exam and ancillary studies. Admitting physician has assumed care for the patient, will follow all pending diagnostics and will complete the evaluation and treatment. <Abner Aguilar - Last Filed: 06/14/17 14:26> *DC/Admit/Observation/Transfer - Discharge Dispostion Admit: Yes <Abner Aguilar - Last Filed: 06/14/17 14:26> - Attestations Scribe Attestion: 06/14/17 13:45 Documentation prepared by Abner Rowley, acting as medical records analyst for Abner Aguilar MD. <Abner Rowley - Last Filed: 06/14/17 14:31> Diagnosis at time of Disposition: SVT (supraventricular tachycardia), ST segment depression - Discharge Dispostion Condition at time of disposition: Stable - Referrals Referrals: Mary Anne Mcbride MD [Primary Care Provider] - - Patient Instructions - Post Discharge Activity
[2017-06-14] MEDS ORDERED: ASPIRIN 81 MG CHEWABLE TABLETS PO ONE (14:30)
[2017-06-14] MEDS ORDERED: ASPIRIN 81 MG CHEWABLE TABLETS ONE (15:09)
--- NOTE | 2017-06-14 17:24 | EKG ---
Test Reason : Blood Pressure : / mmHG Vent. Rate : 108 BPM Atrial Rate : 108 BPM P-R Int : 212 ms QRS Dur : 076 ms QT Int : 436 ms P-R-T Axes : -26 -40 081 degrees QTc Int : 584 ms SINUS TACHYCARDIA WITH 1ST DEGREE A-V BLOCK LEFT AXIS DEVIATION LEFT VENTRICULAR HYPERTROPHY WITH REPOLARIZATION ABNORMALITY PROLONGED QT ABNORMAL ECG WHEN COMPARED WITH ECG OF 19-MAY-2017 09:41, SINUS RHYTHM HAS REPLACED ATRIAL FIBRILLATION Confirmed by ANNABELLE JUNIOR MD ([id number]) on 06/14/2017 5:24:08 PM Referred By: Confirmed By:ANNABELLE JUNIOR MD
--- NOTE | 2017-06-14 19:17 | HP ---
Admitting History and Physical - Primary Care Physician PCP: Teddy Flower - Admission History of Present Illness: 76 year old female with a significant PMH of diabetes, HTN, hyperlipidemia, hepatocellular carcinoma (s/p radiation therapy and embolization), and end stage renal disease (dialysis 3x/week) who presents to the emergency department via EMS with racing heartbeat s/p dialysis. The patient reports being at dialysis when the staff noted a racing heart and sent her to the ED for further evaluation. She also reports falling about a month ago and notes midback and left lower back pain since then. The patient denies any other complaints. This history is limited due to a language barrier (Trinidadian). - Past Medical History Cardiovascular: Yes: HTN, Hyperlipdemia Gastrointestinal: Yes: Other (hepatocellular ca) Endocrine: Yes: Diabetes Mellitus - Smoking History Smoking history: Never smoked - Alcohol/Substance Use Hx Alcohol Use: No Home Medications - Allergies Allergies/Adverse Reactions: Allergies Allergy/AdvReac Type Severity Reaction Status Date / Time No Known Allergies Allergy Verified 06/14/17 10:49 - Home Medications Home Medications: Ambulatory Orders Amlodipine Besylate [Norvasc -] 10 mg PO DAILY 05/19/17 Carvedilol [Coreg] 6.25 mg PO BID 05/19/17 Cinacalcet HCl [Sensipar] 30 mg PO DAILY 05/19/17 Duloxetine HCl 60 mg PO DAILY 05/19/17 Furosemide [Lasix] 80 mg PO DAILY 05/19/17 Hydromorphone [Dilaudid -] 2 mg PO BID 05/19/17 Losartan Potassium 25 mg PO DAILY 05/19/17 Sevelamer Carbonate [Renvela -] 1,600 mg PO CM 05/19/17 Simvastatin [Zocor -] 10 mg PO HS 05/19/17 Physical Examination Vital Signs: Vital Signs Temperature 98.8 F 06/14/17 11:10 Pulse Rate 97 H 06/14/17 19:05 Respiratory Rate 20 06/14/17 19:05 Blood Pressure 143/78 06/14/17 19:05 O2 Sat by Pulse Oximetry (%) 96 06/14/17 19:05 Constitutional: Yes: No Distress HENT: Yes: Atraumatic Neck: Yes: Supple Cardiovascular: Yes: Tachycardia Respiratory: Yes: CTA Bilaterally Gastrointestinal: Yes: Normal Bowel Sounds Extremities: Yes: WNL Neurological: Yes: Alert, Oriented Labs: CBC, BMP 06/14/17 11:58 06/14/17 11:58 Problem List - Problems (1) SVT (supraventricular tachycardia) Assessment/Plan: tele monitoring continue home meds cardiology consult Code(s): I47.1 - SUPRAVENTRICULAR TACHYCARDIA (2) ESRD (end stage renal disease) on dialysis Code(s): N18.6 - END STAGE RENAL DISEASE; Z99.2 - DEPENDENCE ON RENAL DIALYSIS (3) Hepatocellular carcinoma Assessment/Plan: stable Code(s): C22.0 - LIVER CELL CARCINOMA (4) Diabetes Assessment/Plan: check bgms Code(s): E11.9 - TYPE 2 DIABETES MELLITUS WITHOUT COMPLICATIONS (5) HTN (hypertension) Assessment/Plan: on meds stable Code(s): I10 - ESSENTIAL (PRIMARY) HYPERTENSION (6) HLD (hyperlipidemia) Assessment/Plan: on meds Code(s): E78.5 - HYPERLIPIDEMIA, UNSPECIFIED Assessment/Plan Laboratory Tests 06/14/17 06/14/17 06/14/17 11:58 11:58 11:58 WBC 4.8 RBC 3.53 L Hgb 12.1 D Hct 36.8 D MCV 104.2 H MCH 34.3 H MCHC 32.9 RDW 16.8 H D Plt Count 92 L MPV 7.8 D Neutrophils % 65.4 Lymphocytes % 14.9 Monocytes % 18.2 H Eosinophils % 1.0 Basophils % 0.5 PT with INR 11.20 INR 0.99 PTT (Actin FS) 30.4 Sodium 136 Potassium 3.8 Chloride 98 Carbon Dioxide 29 Anion Gap 9 BUN 18 D Creatinine 3.7 H D Creat Clearance w eGFR 11.91 Random Glucose 270 H D Calcium 8.3 L Phosphorus Magnesium 2.6 H Total Bilirubin 0.8 AST 41 H ALT 35 D Alkaline Phosphatase 360 H Creatine Kinase 42 Troponin I 0.08 H B-Natriuretic Peptide 46189.71 H Total Protein 8.0 Albumin 2.8 L 06/14/17 11:58 WBC RBC Hgb Hct MCV MCH MCHC RDW Plt Count MPV Neutrophils % Lymphocytes % Monocytes % Eosinophils % Basophils % PT with INR INR PTT (Actin FS) Sodium Potassium Chloride Carbon Dioxide Anion Gap BUN Creatinine Creat Clearance w eGFR Random Glucose Calcium Phosphorus 2.5 D Magnesium Total Bilirubin AST ALT Alkaline Phosphatase Creatine Kinase Troponin I B-Natriuretic Peptide Total Protein Albumin
[2017-06-14 20:48] LABS: TROPONIN I 0.11 ng/ml (0.00-0.05)
[2017-06-14] MEDS ORDERED: ATORVASTATIN CA 10 MG TABLET (FP) PO SCH (22:00)
[2017-06-14] MEDS: CARVEDILOL 6.25 MG TABLET (FP) PO SCH (22:05)
[2017-06-14] MEDS: HYDROmorphone HCL 2 MG TABLET PO SCH (22:05)
[2017-06-15 07:36] LABS: BASOPHIL 0.5 % (0-2.0); EOSINOPHIL 2.2 % (0-4.5); MCH 34.6 pg (25.7-33.7); MCHC 32.7 g/dl (32.0-36.0); MEAN CELL VOLUME 105.7 fl (80-96); MEAN PLT VOLUME 8.6 fl (7.5-11.1); NEUTROPHILS 60.3 % (42.8-82.8); PLATELET COUNT 95 K/MM3 (134-434); RDW 16.5 % (11.6-15.6); WHITE BLOOD COUNT 5.5 K/mm3 (4.0-10.0)
[2017-06-15 08:13] LABS: ALK PHOS 349 U/L (45-117)
[2017-06-15 08:28] LABS: ANION GAP 13 (8-16); BILIRUBIN,TOTAL 0.8 mg/dL (0.2-1.0); CALCIUM 8.8 mg/dL (8.5-10.1); CO2 26 mmol/L (21-32); CREATININE 5.5 mg/dL (0.55-1.02); GLUCOSE,RANDOM 139 mg/dL (74-106); SGOT/AST 65 U/L (15-37); SGPT/ALT 47 U/L (12-78)
[2017-06-15 08:46] LABS: CPK 42 IU/L (26-192)
[2017-06-15] MEDS ORDERED: DULoxetine HCL 30 MG CAPSULE.DR (FP) PO ONE (09:40)
[2017-06-15] MEDS: HYDROmorphone HCL 2 MG TABLET PO SCH (09:47)
[2017-06-15] MEDS: CARVEDILOL 6.25 MG TABLET (FP) PO SCH (09:49)
[2017-06-15] MEDS: SEVELAMER CARBONATE 800 MG TAB (FP) PO SCH ×2 (09:49→12:39)
[2017-06-15] MEDS ORDERED: ENOXAPARIN NA (PORCINE) 30 MG/0.3 ML DISP.SYRIN SQ SCH (10:00)
[2017-06-15] MEDS ORDERED: DULoxetine HCL 60 MG CAPSULE.DR PO SCH (10:00)
[2017-06-15] MEDS ORDERED: FUROSEMIDE 40 MG TABLET (FP) PO SCH (10:00)
[2017-06-15] MEDS ORDERED: LOSARTAN POTASSIUM 25 MG TABLET PO SCH (10:00)
[2017-06-15] MEDS ORDERED: amLODIPine BESYLATE 10 MG TABLET (FP) PO SCH (10:00)
[2017-06-15] MEDS ORDERED: CINACALCET HCL 30 MG TAB (FP) PO SCH (10:00)
[2017-06-15] MEDS ORDERED: PT OWN MED DRAWER 7, Y5N ONE (12:28)
[2017-06-15 12:29] VITALS: PULSE 77
--- NOTE | 2017-06-15 12:43 | PN ---
Progress Note (short form) - Note Progress Note: Chief Complaint: Events noted, notes reviewed, denies any chest pain or dyspnea , sinus rhythm is noted, history of paroxysmal atrial fibrillation currently on no anticoagulation therapy History of Present Illness: Seen and examined on telemetry. Full consult dictated Echocardiography Dated May 20, 2017 revealed normal left ventricular size and function, normal right ventricular size and function, moderate mitral valve regurgitation, moderate to severe aortic valve stenosis with calculated aortic valve area of 0.75 cm with a mean transvalvular gradient of 26.2 mmHg and a peak transvalvular gradient of 40.7 mmHg, mild aortic valve regurgitation, mild tricuspid valve regurgitation with calculated RVSP of 55.7 mmHg consistent with moderate degree of pulmonary hypertension Medications: Current Medications Amlodipine Besylate (Norvasc -) 10 mg PO DAILY [facility] Last Admin: 06/15/17 09:47 Dose: 10 mg Atorvastatin Calcium (Lipitor -) 10 mg PO HS [facility] Last Admin: 06/14/17 22:05 Dose: 10 mg Carvedilol (Coreg -) 6.25 mg PO BID [facility] Last Admin: 06/15/17 09:49 Dose: 6.25 mg Cinacalcet (Sensipar -) 30 mg PO DAILY [facility] Duloxetine HCl (Cymbalta -) 60 mg PO DAILY [facility] Last Admin: 06/15/17 09:45 Dose: 60 mg Enoxaparin Sodium (Lovenox -) 30 mg SQ DAILY [facility] Last Admin: 06/15/17 09:46 Dose: 30 mg Furosemide (Lasix -) 80 mg PO DAILY [facility] Last Admin: 06/15/17 09:49 Dose: 80 mg Hydromorphone HCl (Dilaudid -) 2 mg PO BID [facility] Last Admin: 06/15/17 09:47 Dose: 2 mg Losartan Potassium (Cozaar -) 25 mg PO DAILY [facility] Last Admin: 06/15/17 09:47 Dose: 25 mg Sevelamer Carbonate (Renvela -) 1,600 mg PO [facility] Last Admin: 06/15/17 12:39 Dose: 1,600 mg Review of Systems Constitutional: denies Chills or Fever Respiratory: denies Cough or Sputum Production Cardiovascular: As noted above Gastrointestinal: denies Nausea, Vomiting, Diarrhea, Constipation or Abdominal Pain Genitourinary: No Symptoms Reported Musculoskeletal: No Symptoms Reported Vital Signs: Last Vital Signs Temp Pulse Resp BP Pulse Ox 98.1 F 77 18 100/50 93 L 06/15/17 06:00 06/15/17 10:28 06/15/17 06:00 06/15/17 06:00 06/15/17 10:28 Intake & Output 06/12/17 06/13/17 06/14/17 06/15/17 23:59 23:59 23:59 23:59 Intake Total 260 Balance 260 Weight 118 lb 106 lb 4 oz Constitutional: No Distress, Calm Neck: Supple Negative JVD Bilateral carotid bruit Respiratory: Diminished at the Bases Cardiovascular: S1 S2 regular rate and rhythm Grade 2-3/6 JEAN PIERRE Gastrointestinal: Soft Benign Normal Bowel Sounds Ext: Negative Edema Labs: CBC, BMP 06/15/17 05:10 06/15/17 05:10 Hepatic Panel Total Bilirubin 0.8 mg/dL (0.2-1.0) 06/15/17 05:10 AST 65 U/L (15-37) H D 06/15/17 05:10 ALT 47 U/L (12-78) D 06/15/17 05:10 Alkaline Phosphatase 349 U/L (45-117) H 06/15/17 05:10 Albumin 3.0 g/dl (3.4-5.0) L 06/15/17 05:10 Troponin, BNP 06/14/17 06/14/17 06/15/17 11:58 20:09 05:10 Troponin I 0.08 H 0.11 H 0.10 H B-Natriuretic Peptide 83096.71 H 06/15/17 05:10 Troponin I Cancelled B-Natriuretic Peptide Assessment/Plan ASSESSMENT: 1. 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 Aortic valve stenosis 3. Diastolic left ventricular dysfunction with chronic class I NYHA classification LV failure, compensated/euvolemic 4. CAD angina pectoris 5. MR 6. TR with moderate degree of pulmonary HTN 7. HTN 8. DM 9. Hyperlipidemia 10. Hepatocellular carcinoma 11. End stage renal disease on hemodialysis PLAN: 1. Continue Coreg and titrate dosage as tolerated 2. Continue Norvasc but decrease dosage 3. Continue Cozaar 4. Ideally considering the above-noted history of paroxysmal atrial fibrillation with [id number] score of 6 anticoagulation therapy initiation is recommended with Coumadin unless it is absolutely contraindicated, to be further discussed with her primary director building at [facility] 5. Continue Lipitor 6. Patient can be discharged home from the cardiovascular point of view to followup with her director building at [facility] Dr. Robin Brink Above was discussed in detail with the patient's daughter who was contacted via telephone Zacarias Aguila M.D.
[2017-06-15] MEDS ORDERED: amLODIPine BESYLATE 5 MG TABLET (FP) PO SCH (13:04)
[2017-06-15] MEDS ORDERED: CARVEDILOL 12.5 MG TABLET (FP) PO SCH (13:09)
--- NOTE | 2017-06-15 13:46 | CONS ---
DATE OF CONSULTATION: 06/15/2017 REQUESTING PHYSICIAN: Teddy Flower MD CHIEF COMPLAINT: Evaluation of cardiac arrhythmia. HISTORY: The history was obtained from the patient's daughter who was contacted via telephone. A 76-year-old female of [place] decent with known history of probable coronary artery disease, angina pectoris, diastolic left ventricular dysfunction with chronic class I [place] Heart [employer] classification left ventricular failure, paroxysmal atrial fibrillation on no anticoagulation therapy, [id number] score of 6, aortic valve disease, aortic valve stenosis noted on echocardiography performed May 20, 2017, hypertensive cardiovascular disease, diabetes mellitus, hypercholesterolemia, hepatocellular carcinoma post therapy, end-stage renal disease on hemodialysis who presented to [facility] when she was the tachycardia during a hemodialysis session. Upon arrival of EMS, 12-lead electrocardiogram revealed evidence of narrow-complex tachycardia consistent with supraventricular tachycardia that terminated post valsalva maneuver. The patient did not report any associated chest discomfort. The patient denied any associated dyspnea. Patient denies any history of orthopnea, paroxysmal or nocturnal dyspnea, or peripheral edema. The patient denies any history of syncope. PAST MEDICAL HISTORY: Coronary artery disease, angina pectoris, diastolic left ventricular dysfunction with chronic class 1 [place] Heart [employer] classification left ventricular failure, paroxysmal atrial fibrillation, [id number] score of 6 on no anticoagulation therapy, aortic valve disease, aortic valve stenosis, hypertensive cardiovascular disease, diabetes mellitus, hypercholesterolemia, hepatocellular carcinoma post treatment, end-stage renal disease on hemodialysis. SOCIAL HISTORY: Denies smoking. FAMILY HISTORY: No history of coronary artery disease. ALLERGIES: None reported. MEDICAL THERAPY: Currently includes Norvasc 10 mg once a day, Lipitor 10 mg once a day, Coreg 6.25 mg twice a day, Sensipar 30 mg once a day, Cymbalta 60 mg once a day, Lovenox 30 mg subcutaneously once a day, Lasix 80 mg once a day, Dilaudid 2 mg twice a day, Cozaar 25 mg once a day, Renvela 1600 mg as prescribed. REVIEW OF SYSTEMS: Head and Neck: Denies headache, photophobia, blurring of vision. Respiratory: No cough or sputum production. Cardiovascular: As noted above. Gastrointestinal: Denies nausea, vomiting, diarrhea, abdominal discomfort. Genitourinary: No symptoms reported. Musculoskeletal: History of degenerative joint disease. PHYSICAL EXAMINATION: Vital Signs: Temperature 98.1 Fahrenheit, blood pressure 100/50 mmHg, pulse rate 77 beats per minute. Head and Neck: Pupils equal and reactive to light and accommodation. Extraocular muscles are intact. Anicteric sclerae. Bilateral carotid bruits. No JVD appreciated. Chest: Diminished breath sounds at the bases bilaterally. Cardiovascular: S1, S2 regular. Grade 2/6 to 3/6 systolic ejection murmur. No clicks or gallops. Abdomen: Soft, benign. Normoactive bowel sounds. Extremities: Negative edema. Have 1+ distal pulses. No calf tenderness. Electrocardiogram: Sinus rhythm, 1st-degree AV block with ST segment and T-wave abnormality. CBC with a white cell count 5.5, hemoglobin 12.3, platelet count 95. Basic metabolic profile reveals sodium 136, potassium 4.3, BUN 57, creatinine 5.5, glucose 139. ASSESSMENT: 1. Paroxysmal supraventricular tachycardia probably atrioventricular papito re-entrant tachycardia in a patient with known history of paroxysmal atrial fibrillation and [id number] score of 6 currently in sinus rhythm on no anticoagulation therapy. 2. Aortic valve disease, aortic valve stenosis [id number] in severity with aortic valve area of 0.75 cm2 on echocardiography performed May 20, 2017. 3. Diastolic left ventricular dysfunction with chronic class I [place] Heart [employer] classification left ventricular failure compensated, euvolemic. 4. Coronary artery disease, angina pectoris. 5. Hypertensive cardiovascular disease. 6. Diabetes mellitus. 7. Hypercholesterolemia. 8. Mitral valve regurgitation. 9. Tricuspid valve regurgitation with moderate degree of pulmonary hypertension. 10. Hepatocellular carcinoma post treatment. 11. End-stage renal disease on hemodialysis. PLAN: 1. Continuation of Coreg and titration of dosage as tolerated. 2. Continuation of Norvasc but decreasing dosage. 3. Continuation of Cozaar. 4. Ideally considering the above-noted history of paroxysmal atrial fibrillation with [id number] score of 6, anticoagulation therapy initiation is recommended with Coumadin unless it is absolutely contraindicated but to be further discussed with her primary jockey room custodian at [facility]. 5. Continuation of Lipitor. 6. Patient can be discharged home from the cardiovascular point of view to follow up with her jockey room custodian at [facility], Dr. Robin Brink. If arrhythmia recurs, consideration for proceeding with radiofrequency ablation. Above was discussed in detail with the patient's daughter who was contacted via telephone as outlined above. Thank you for the kind referral. KANDICE JENSEN M.D. SEN/[id number]
[2017-06-15 15:12] VITALS: BP 132/65; TEMP 98.5
--- NOTE | 2017-06-15 17:28 | DS ---
Physical Examination Vital Signs: Vital Signs Temperature 98.5 F 06/15/17 10:00 Pulse Rate 77 06/15/17 10:28 Respiratory Rate 20 06/15/17 10:00 Blood Pressure 132/65 06/15/17 10:00 O2 Sat by Pulse Oximetry (%) 93 L 06/15/17 10:28 Labs: CBC, BMP 06/15/17 05:10 06/15/17 05:10 Discharge Summary Reason For Visit: SUPRAVENTRICULAR TACHYCARDIA Condition: Stable - Instructions Referrals: Zacarias Aguila MD [Staff Physician] - Teddy Flower MD [Staff Physician] - Mary Anne Mcbride MD [Primary Care Provider] - Disposition: HOME - Home Medications Comprehensive Discharge Medication List: Ambulatory Orders Amlodipine Besylate [Norvasc -] 10 mg PO DAILY 05/19/17 Carvedilol [Coreg] 6.25 mg PO BID 05/19/17 Cinacalcet HCl [Sensipar] 30 mg PO DAILY 05/19/17 Duloxetine HCl 60 mg PO DAILY 05/19/17 Furosemide [Lasix] 80 mg PO DAILY 05/19/17 Hydromorphone [Dilaudid -] 2 mg PO BID 05/19/17 Losartan Potassium 25 mg PO DAILY 05/19/17 Sevelamer Carbonate [Renvela -] 1,600 mg PO CM 05/19/17 Simvastatin [Zocor -] 10 mg PO HS 05/19/17 dc home
== END 2017-06-15 14:26 | disposition home or self-care (01) ==
LOC: JER 10:48 → UNDOADMOB 14:26 → JERBED 14:26 → INTOOBSV 14:26 → JERBED 19:38 → J4W 20:24
PROVIDERS: ADMIT Internal Medicine; ATTEND Internal Medicine
PROC: 3E013GC Introduction of Other Therapeutic Substance into Subcutaneous Tissue, Percutaneous Approach (ICD-10-PCS; principal; 2017-06-14)
DX: I47.1 Supraventricular tachycardia (principal); I12.0 Hypertensive chronic kidney disease with stage 5 chronic kidney disease or end stage renal disease; E11.22 Type 2 diabetes mellitus with diabetic chronic kidney disease; N18.6 End stage renal disease; Z99.2 Dependence on renal dialysis; E78.5 Hyperlipidemia, unspecified; C22.0 Liver cell carcinoma; Z92.3 Personal history of irradiation
CPT/HCPCS: 36415; 71010-TC; 80053; 82550; 83735; 83880; 84100; 84484; 85025; 85610; 85730; 93005; 93010; 96372; 99285-25; G0378

== ENCOUNTER 2017-12-01 09:38 | Inpatient (IN) | payer OTHER ==
[2017-12-01 09:54] VITALS: BMI 22.6
[2017-12-01] MEDS ORDERED: SODIUM CHLORIDE 0.9% 1000 ML INFUS.BAG IV STA (09:58)
--- NOTE | 2017-12-01 09:58 | PDOC ---
History of Present Illness <Mariia Carrillo - Last Filed: 12/01/17 11:43> - General History Source: Patient Exam Limitations: Clinical Condition, Language Barrier - History of Present Illness Initial Comments: 12/01/17 10:04 Pop.it# [id number] used to interpret Nepali. The patient is a 76 year old female with a significant PMH of diabetes, HTN, hyperlipidemia, hepatocellular carcinoma (s/p radiation therapy and recent embolization to right inguinal canal on Wednesday), Hep C, and end stage renal disease (dialysis 3x/week MWF) who presents to the emergency department via EMS with racing heartbeat and fever 2 hours and 46 minutes into her dialysis treatment today. The patient reports being at dialysis when the staff noted tachycardia and a temp of 99F and sent her to the ED for further evaluation. The patient is febrile now at 102.3F. The patient notes that she has nausea with associated dry heaving but denies vomiting. She also reports lower abdominal pain. She also reports SOB and a dry cough at this time. As per EMR, the patient had aortic stenosis on last echo in May 2017 with normal LV at the time. This history is limited due to a language barrier (Nepali). Patient's son, Paxton, at bedside also acting as can dryer. The patient denies chest pain, headache and dizziness. Denies fever, chills, diarrhea and constipation. Denies dysuria, frequency, urgency and hematuria. Allergies: oxycodone Past surgical history: None reported. Social history: No reported toxic habits. PCP: Dr. Kalyn Roldan [phone], Manager Business: Dr. Mary Anne Mcbride <Rebecca Carlos - Last Filed: 12/01/17 11:51> - General Chief Complaint: SIRS, Suspected/Possible Stated Complaint: R/O INFECTION Time Seen by Provider: 12/01/17 09:43 Past History - Past Medical History Anemia: Yes Asthma: No Cancer: Yes (LIVER - 15 YEARS - RESECTED/RADIATION) Cardiac Disorders: No CVA: No COPD: No CHF: No Dementia: No Diabetes: Yes (WED WED WED) Dialysis: Yes (M-W-F) GI Disorders: Yes (GI BLEED 20 YRS AGO) Disorders: No HTN: Yes Hypercholesterolemia: Yes Liver Disease: Yes (HEP B) Seizures: No Thyroid Disease: No - Surgical History Abdominal Surgery: Yes (LIVER RESECTION) Appendectomy: No Cardiac Surgery: No Cholecystectomy: Yes Lung Surgery: No Neurologic Surgery: No Orthopedic Surgery: Yes (SHOULDER FX - 7 YRS AGO) - Suicide/Smoking/Psychosocial Hx Smoking History: Never smoked Have you smoked in the past 12 months: No Hx Alcohol Use: No Drug/Substance Use Hx: No Substance Use Type: None Hx Substance Use Treatment: No <Mariia Carrillo - Last Filed: 12/01/17 11:43> <Rebecca Carlos - Last Filed: 12/01/17 11:51> - Past Medical History Allergies/Adverse Reactions: Allergies Allergy/AdvReac Type Severity Reaction Status Date / Time No Known Allergies Allergy Verified 06/14/17 10:49 Home Medications: Ambulatory Orders Amlodipine Besylate [Norvasc -] 10 mg PO DAILY 05/19/17 Carvedilol [Coreg] 6.25 mg PO BID 05/19/17 Cinacalcet HCl [Sensipar] 30 mg PO DAILY 05/19/17 Duloxetine HCl 60 mg PO DAILY 05/19/17 Furosemide [Lasix] 80 mg PO DAILY 05/19/17 HYDROmorphone [Dilaudid -] 2 mg PO BID 05/19/17 Losartan Potassium 25 mg PO DAILY 05/19/17 Sevelamer Carbonate [Renvela -] 1,600 mg PO CM 05/19/17 Simvastatin [Zocor -] 10 mg PO HS 05/19/17 Review of Systems - Review of Systems Able to Perform ROS?: Yes Comments:: 12/01/17 10:04 GENERAL/CONSTITUTIONAL: (+) fever. No chills. No weakness. HEAD, EYES, EARS, NOSE AND THROAT: No change in vision. No ear pain or discharge. No sore throat. GASTROINTESTINAL: (+) nausea, lower abdominal pain. No vomitting, diarrhea or constipation. GENITOURINARY: No dysuria, frequency, or change in urination. CARDIOVASCULAR: (+) shortness of breath. Cough. No chest pain RESPIRATORY: No cough, wheezing, or hemoptysis. MUSCULOSKELETAL: No joint or muscle swelling or pain. No neck or back pain. SKIN: No rash NEUROLOGIC: No headache, vertigo, loss of consciousness, or change in strength/ sensation. ENDOCRINE: No increased thirst. No abnormal weight change. HEMATOLOGIC/LYMPHATIC: No anemia, easy bleeding, or history of blood clots. ALLERGIC/IMMUNOLOGIC: No hives or skin allergy. <Rebecca Carlos - Last Filed: 12/01/17 11:51> *Physical Exam - Vital Signs Last Vital Signs Temp Pulse Resp BP Pulse Ox 102.3 F H 113 H 20 127/68 98 12/01/17 09:40 12/01/17 09:40 12/01/17 09:40 12/01/17 09:40 12/01/17 09:40 <GerardoMariia - Last Filed: 12/01/17 11:43> - Vital Signs Last Vital Signs Temp Pulse Resp BP Pulse Ox 102.3 F H 113 H 20 127/68 98 12/01/17 09:40 12/01/17 09:40 12/01/17 09:40 12/01/17 09:40 12/01/17 09:40 - Physical Exam Comments: 12/01/17 10:05 Constitutional: Awake, alert, oriented. No acute distress. Head: Normocephalic. Atraumatic Eyes: PERRL. EOMI. Conjunctivae are not pale. ENT: Mucous membranes are moist and intact. Posterior pharynx without exudates or erythema. Uvula midline. Neck: Supple. Full ROM. No lymphadenopathy. Cardiovascular: (+) systolic ejection murmur. Tachycardic rate. Regular rhythm. S1, S2 regular. Distal pulses are 2+ and symmetric. Pulmonary/Chest: (+) diminished BS at bilateral bases. Clear to auscultation bilaterally No wheezing, rales or rhonchi. Abdominal: Soft and non-distended. There is no tenderness. No rebound, guarding or rigidity. No organomegaly. No palpable masses. Good bowel sounds. Back: No CVA tenderness. Musculoskeletal: (+) AV fistula with palpable thrill to right forearm. No edema. No cyanosis. No clubbing. Full range of motion in all extremities. No calf tenderness. Radial/pedal pulses are intact and 2+ bilaterally Skin: (+) Skin is hot to touch. There is a wound to right inguinal canal. no pulsatile masses. No petechiae. No purpura. Neurological: Alert and oriented to person, place, and time. Cranial nerves II -XII are grossly intact. Normal speech. Strength is grossly symmetric. No sensory deficits. Psychiatric: Good eye contact. Normal interaction, affect and behavior. <Rebecca Carlos - Last Filed: 12/01/17 11:51> Heart Score/ECG Review - ECG Intrepretation Comment:: 12/01/17 10:45 sinus tach at 109, nl axis, nl interval, pvc, poor r wave progression, st depression lateral leads, qtc prolongation <Mariia Carrillo - Last Filed: 12/01/17 11:43> ED Treatment Course - LABORATORY CBC & Chemistry Diagram: 12/01/17 10:16 12/01/17 10:16 <Mariia Carrillo - Last Filed: 12/01/17 11:43> - LABORATORY CBC & Chemistry Diagram: 12/01/17 10:16 12/01/17 10:16 <Rebecca Carlos - Last Filed: 12/01/17 11:51> Medical Decision Making - Medical Decision Making 12/01/17 10:18 77yo female arrives from HD (finished 2 hours of treatment) for eval of nausea, fever, tachy -pt had recent liver embolization for HCC on Wednesday at [facility] [place] [place] -c/o nausea - no vomiting -pt arrives febrile, tachy -systolic ejection murmur -will obtain sepsis labs, fluids, abx -pending son arrival in the ED 12/01/17 10:20 per the son, pt underwent embolization of HCC on wednesday - felt good yesterday so was d/c to home c/o nausea this Am - no vomiting -no blood in stool, but c/o lower abd pain -cough - nonproductive pt is febrile 102 in the ED -does not make urine -requests call to [facility] [place] [place] (calling them now) for poss transfer -fam also requesting transfer to [facility] doc is Mary Anne Alicea 12/01/17 10:[address] Kalyn Roldan 12/01/17 10:[address] roldan-census at 108% so transfer intiated but may take a few days admit here at [facility] and as soon as a bed is available will accept pt in transfer states elevated wbc, fever can be from post embolization process to tumor in liver states ct yesterday showed necrosis of some tumor in the liver from the embolizaiton - this is normal can call with any questions 12/01/17 11:33 microblog sent to [facility] for admission consult placed to Dr. Mcbride for HD 12/01/17 11:43 case discussed with [facility] who accepts pt to service <Mariia Carrillo - Last Filed: 12/01/17 11:43> - Medical Decision Making 12/01/17 10:25 Patient's case discussed with Dr. Kalyn Roldan, , who requests the patient be transferred to [facility]. She states "Dr. Mclean" will arrange the patient for transfer, however, Dr. Roldan requests we call her in an hour if she does not reach out to us first. Dr. Roldan advises to draw labs but to hold on imaging. Dr. Roldan states the patient appeared well yesterday before her discharge. 12/01/17 11:[address] Kalyn Roldan, the transfer process was initiated, however, there are no current beds available at their facility. Dr. Roldan requests the patient be imaged and admitted to our facility and will keep us updated on availability. Anticipating transfer. 12/01/17 11:50 Patient's son, Paxton, provided contact information : [phone] <Rebecca Carlos - Last Filed: 12/01/17 11:51> *DC/Admit/Observation/Transfer - Discharge Dispostion Admit: Yes - Attestations Physician Attestion: 12/01/17 11:44 I, Dr. Mariia Carrillo DO, attest that this document has been prepared under my direction and personally reviewed by me in its entirety. I further attest, that it accurately reflects all work, treatment, procedures and medical decision -making performed by me. <Mariia Carrillo - Last Filed: 12/01/17 11:43> - Attestations Scribe Attestion: 12/01/17 10:11 Documentation prepared by Rebecca Carlos, acting as medical assisting instructor for Mariia Carrillo DO <Rebecca Carlos - Last Filed: 12/01/17 11:51> Diagnosis at time of Disposition: Systemic inflammatory response syndrome (SIRS), Postsurgical fever - Discharge Dispostion Condition at time of disposition: Guarded - Referrals Referrals: Mary Anne Mcbride MD [Primary Care Provider] - - Patient Instructions - Post Discharge Activity
[2017-12-01] MEDS ORDERED: PIPERACILLIN/TAZOB 2.25 GM 2.25 GM in DEXTROSE 5%-WATER - 50 ML IVPB ONE (09:59)
[2017-12-01] MEDS ORDERED: VANCOMYCIN 1,000 MG in DEXTROSE 5%-WATER - 250 ML IVPB ONE (09:59)
[2017-12-01] MEDS ORDERED: ACETAMINOPHEN 1000 MG/100 ML VIAL (NON FORMULARY) IVPB ONE (09:59)
[2017-12-01] MEDS ORDERED: VANCOMYCIN 1 GRAM (PRE-DOCKED) 1,000 MG/250 ML BAG IVPB ONE (10:10)
[2017-12-01] MEDS ORDERED: ACETAMINOPHEN INJECTION 100 ML IVPB ONE (10:10)
[2017-12-01] MEDS ORDERED: ONDANSETRON 4 MG/2 ML VIAL IVPUSH ONE (10:23)
[2017-12-01 10:28] LABS: HEMATOCRIT 31.9 % (32.4-45.2); HEMOGLOBIN 10.7 GM/dL (10.7-15.3); MCHC 33.7 g/dl (32.0-36.0); MEAN CELL VOLUME 103.8 fl (80-96); MEAN PLT VOLUME 9.5 fl (7.5-11.1); PLATELET COUNT 135 K/MM3 (134-434); RBC 3.07 M/mm3 (3.60-5.2); RDW 16.6 % (11.6-15.6); WHITE BLOOD COUNT 15.5 K/mm3 (4.0-10.0)
[2017-12-01 10:29] LABS: VENOUS PC02 37.3 mmHg (38-52); VENOUS PH 7.47 (7.32-7.42); VENOUS PO2 50.6 mmHg (28-48)
[2017-12-01 10:46] LABS: INR 1.24 (0.82-1.09)
[2017-12-01 10:48] LABS: ACTIVATED PTT 29.4 SECONDS (26.9-34.4)
[2017-12-01] MEDS ORDERED: ONDANSETRON 4 MG/2 ML VIAL ONE (10:54)
[2017-12-01 10:57] LABS: ALBUMIN 2.8 g/dl (3.4-5.0); ANION GAP 15 (8-16); BILIRUBIN,TOTAL 1.4 mg/dL (0.2-1.0); BLOOD UREA NITROGEN 21 mg/dL (7-18); CALCIUM 8.7 mg/dL (8.5-10.1); CHLORIDE 95 mmol/L (98-107); CO2 25 mmol/L (21-32); CREATININE 3.4 mg/dL (0.55-1.02); GLUCOSE,RANDOM 180 mg/dL (74-106); SODIUM 135 mmol/L (136-145); TOT PROT 8.5 g/dl (6.4-8.2)
[2017-12-01 11:02] LABS: ALK PHOS 333 U/L (45-117)
[2017-12-01 11:06] LABS: SGPT/ALT 704 U/L (12-78)
[2017-12-01 11:07] LABS: POTASSIUM 4.8 mmol/L (3.5-5.1); SGOT/AST 1730 U/L (15-37)
[2017-12-01 11:19] LABS: MACROCYTOSIS 1+; OVALOCYTE 1+
[2017-12-01 11:27] LABS: MAGNESIUM 2.5 mg/dL (1.8-2.4)
--- NOTE | 2017-12-01 12:12 | HP ---
Admitting History and Physical - Admission Chief Complaint: hypotension, tachycardia, abdominal pain History of Present Illness: This is a 77 year old female ([place] speaking) with pmhx hepatocellular carcinoma (s/p radiation therapy and recent embolization Wednesday 11/29), Hep C, ESRD on HD MWF, who presented to the ED from HD today. In HD she was noted to be hypotensive, tachycardic, with fever and complained on left sided abdominal pain. Per her son, she leaves for HD early 430am so there is no report as to how she was feeling in the morning. She completed 2hr and 46min on the machine today. She told the ED she felt nauseated but did not throw up. Per EMR, the patient had aortic stenosis on last echo in May 2017 with normal LV at the time. ED Course: 1. Fever 102.3 2. Lactic acid 2.9, trop 0.07 3. 1L bolus given 4. x1 vanco, cefepime PCP at [facility]: Dr. Kalyn Roldan [phone], Service Line Bus Cleaner: Dr. Mary Anne Mcbride History Source: Family Member, Medical Record Limitations to Obtaining History: Language Barrier - Past Medical History Cardiovascular: Yes: HTN, Hyperlipdemia Gastrointestinal: Yes: Other (hepatocellular ca s/p embolization) Hepatobiliary: Yes: Hepatitis C Renal/: Yes: Hemodialysis Heme/Onc: Yes: Cancer (hepato) Endocrine: Yes: Diabetes Mellitus - Smoking History Smoking history: Never smoked Have you smoked in the past 12 months: No - Alcohol/Substance Use Hx Alcohol Use: No - Social History Usual Living Arrangement: Yes: With Spouse, With Child Home Medications - Allergies Allergies/Adverse Reactions: Allergies Allergy/AdvReac Type Severity Reaction Status Date / Time oxycodone Allergy Verified 12/01/17 12:26 - Home Medications Home Medications: Ambulatory Orders Amlodipine Besylate [Norvasc -] 10 mg PO DAILY 05/19/17 Carvedilol [Coreg] 6.25 mg PO BID 05/19/17 Cinacalcet HCl [Sensipar] 30 mg PO HS 05/19/17 Furosemide [Lasix] 80 mg PO DAILY 05/19/17 HYDROmorphone [Dilaudid -] 2 mg PO Q4H PRN 05/19/17 Losartan Potassium 25 mg PO DAILY 05/19/17 Sevelamer Carbonate [Renvela -] 800 mg PO TIDCM 05/19/17 Simvastatin [Zocor -] 10 mg PO HS 05/19/17 Acetaminophen 650 mg PO Q6H PRN 12/01/17 Prochlorperazine Maleate [Compazine] 10 mg PO Q8H PRN 12/01/17 Review of Systems - Review of Systems Constitutional: reports: Fever, Lethargy, Weakness Eyes: reports: No Symptoms HENT: reports: No Symptoms Neck: reports: No Symptoms Cardiovascular: reports: No Symptoms Respiratory: reports: SOB Gastrointestinal: reports: Abdominal Pain Genitourinary: reports: No Symptoms Musculoskeletal: reports: No Symptoms Integumentary: reports: No Symptoms Endocrine: reports: No Symptoms Hematology/Lymphatic: reports: No Symptoms Psychiatric: reports: No Symptoms Physical Examination Vital Signs: Vital Signs Temperature 102.3 F H 12/01/17 10:00 Pulse Rate 113 H 12/01/17 09:40 Respiratory Rate 20 12/01/17 09:40 Blood Pressure 127/68 12/01/17 09:40 O2 Sat by Pulse Oximetry (%) 98 12/01/17 09:56 Eyes: Yes: Conjunctiva Clear HENT: Yes: Atraumatic Neck: Yes: WNL Cardiovascular: Yes: Regular Rate and Rhythm, Murmur, S1, S2 Respiratory: Yes: Regular, On Nasal O2, Rhonchi Gastrointestinal: Yes: Normal Bowel Sounds, Distention, Tenderness (LUQ R inguinal dressing old blood) Musculoskeletal: Yes: WNL Extremities: Yes: Other (RUE AVF + thrill) Edema: No Integumentary: Yes: Other (hot to touch) Wound/Incision: Yes: Other (R inguinal dressing intact) Neurological: Yes: Oriented, Cran Nerves II-XII Intact, Lethargy Psychiatric: Yes: Alert Labs: CBC, BMP 12/01/17 10:16 12/01/17 10:16 Imaging - Results Chest X-ray: Report Reviewed (new congestive changes), Image Reviewed Cat Scan: Pending Problem List - Problems (1) Systemic inflammatory response syndrome (SIRS) Code(s): R65.10 - SIRS OF NON-INFECTIOUS ORIGIN W/O ACUTE ORGAN DYSFUNCTION (2) Diabetes Code(s): E11.9 - TYPE 2 DIABETES MELLITUS WITHOUT COMPLICATIONS (3) ESRD (end stage renal disease) on dialysis Code(s): N18.6 - END STAGE RENAL DISEASE; Z99.2 - DEPENDENCE ON RENAL DIALYSIS (4) HLD (hyperlipidemia) Code(s): E78.5 - HYPERLIPIDEMIA, UNSPECIFIED (5) HTN (hypertension) Code(s): I10 - ESSENTIAL (PRIMARY) HYPERTENSION (6) Hepatocellular carcinoma Code(s): C22.0 - LIVER CELL CARCINOMA Assessment/Plan Assessment: 77 year old female with HCC s/p ablation, ESRD (MWF), HTN, HLD, DM ( no meds) admitted with fever and tachycardia Plan: 1. Severe Sepsis with lactic acidosis - s/p 1L in ED - Recheck lactic acid now - Started vanco, cefepime x1 - Hold on further fluids, cxr with congestion, until LA returned - Nephrology likely to not run again today, possibly tomorrow, as discussed - Await CTAP read - Monitor on tele, non cardiac - ID consulted 2. ESRD on HD MWF - HD today - HD per renal - Check phos levels - Cont renvela 3. Elevated trop - Cycle trop #2 @ 1600 - Possibly due to sepsis, also pt has decompensated liver and no renal function 4. HTN - Hold BP meds at this time d/t sepsis 5. HCC - s/p ablation 11/29 - Dr. Kalyn Roldan [phone] - Pt has been accepted to [facility] for transfer bed unavailable at this time - CTAP pending 6. DM II - ISS, BGM ACHS 7. DVT - Heparin sq Visit type - Emergency Visit Emergency Visit: Yes ED Registration Date: 12/01/17 Care time: The patient presented to the Emergency Department on the above date and was hospitalized for further evaluation of their emergent condition. - New Patient This patient is new to me today: Yes Date on this admission: 12/01/17 - Critical Care Critical Care patient: No Hospitalist Screening - Colonoscopy Questionnaire Colonoscopy Questionnaire: Colonoscopy Questionnaire - Patient: 50 - 75 years old and never had a screening colonoscopy: Unknown History of colon or rectal polyps, or CA: Unknown History of IBD, Crohn's disease or UC: Unknown History of abdominal radiation therapy as a child: Unknown - Relative: 1 with colon or rectal CA, or polyps at age 60 or younger: Unknown Colon or rectal CA diagnosed at age 45 or younger: Unknown Multiple relatives with colon or rectal CA: Unknown - Outcome: Screening Result: Negative Screen
[2017-12-01] MEDS ORDERED: morphine SULFATE 4 MG/ML VIAL IVPUSH PRN (12:34)
--- NOTE | 2017-12-01 12:48 | CONSULT ---
Consult - text type - Consultation Consultation Note: Renal Consult for ESRD on HD This is a 77 year old woman with PMhx of ESRD on HD (MWF), HCC s/p Ablation and Radiation with recurrence, DM not on Meds presented from dialysis unit with fever and tachycardia. Pt has 2.5 hours of dialysis today. Pt Febrile in the ED and reports epigastric pain. No N/V/D. Denies any sob, cough, CP. s/p Recent admission to [facility] for mangement of HCC. PMhx: as above Allergies: NKDA Family Hx: NC Social hx: No T/A/D ROS: as per HPI Home Medications Medication Instructions Recorded Amlodipine Besylate [Norvasc -] 10 mg PO DAILY 05/19/17 Carvedilol [Coreg] 6.25 mg PO BID 05/19/17 Cinacalcet HCl [Sensipar] 30 mg PO HS 05/19/17 Furosemide [Lasix] 80 mg PO DAILY 05/19/17 HYDROmorphone [Dilaudid -] 2 mg PO Q4H PRN 05/19/17 Losartan Potassium 25 mg PO DAILY 05/19/17 Sevelamer Carbonate [Renvela -] 800 mg PO TIDCM 05/19/17 Simvastatin [Zocor -] 10 mg PO HS 05/19/17 Acetaminophen 650 mg PO Q6H PRN 12/01/17 Prochlorperazine Maleate 10 mg PO Q8H PRN 12/01/17 [Compazine] Vital Signs Temperature 102.3 F H 12/01/17 10:00 Pulse Rate 90 12/01/17 12:17 Respiratory Rate 18 12/01/17 12:17 Blood Pressure 116/55 12/01/17 12:17 O2 Sat by Pulse Oximetry (%) 98 12/01/17 12:17 Intake & Output 11/28/17 11/29/17 11/30/17 12/01/17 23:59 23:59 23:59 23:59 Weight 54.431 kg NAD awake and alert MMM, No JVD tachycardic, + systolic murmur Dec BS at lung bases soft, + tenderness in Abd no rebound or guarding No LE edema, clubbing or cyanosis + AVF left arm CBC, BMP 12/01/17 10:16 12/01/17 10:16 Current Medications Heparin Sodium (Porcine) (Heparin -) 5,000 unit SQ Q8H-IV JOVANNY Insulin Aspart (Novolog Vial Sliding Scale -) 0 vial SQ ACHS JOVANNY PRN Reason: Protocol Morphine Sulfate (Morphine Injection -) 1 mg IVPUSH Q4H PRN PRN Reason: PAIN LEVEL 1-5 77 year old woman with PMhx of ESRD on HD (MWF), HCC s/p Ablation and Radiation with recurrence, DM not on Meds presented from dialysis unit with fever and tachycardia. #Sepsis Syndrome #Lactic acidosis #ESRD on HD #HCC #Anemia in setting of CKD #Renal Osteodystrophy s/p 2.5 hours of dialysis today, will not plan for additional treatment today but will need close monitoring of respiratory status as pt with congestion.effusions on CXR Emperic Abx as per ID, follow up cultures CT of Abd/Pelvis to be done NPO for now Repeat Lactic acid in evening (s/p 1L of IVF in the ED) Keep MAP >65 will need to obtain records from recent admission Trend Phos, Ca levels Thank you Will follow Nelson Hinds DO
[2017-12-01] MEDS ORDERED: ACETAMINOPHEN 325 MG TABLET (FP) PO PRN (12:58)
[2017-12-01] MEDS ORDERED: HYDROmorphone HCL 2 MG TABLET PO PRN (12:58)
[2017-12-01] MEDS: CEFTRIAXONE 1 GM in DEXTROSE 5%-WATER - 50 ML IVPB ONE ×2 (13:17→13:25)
[2017-12-01] MEDS ORDERED: CEFEPIME HCL/D5W 1 GM/50 ML BAG IVPB ONE ×2 (14:15→16:15)
[2017-12-01] MEDS: HEPARIN NA (PORCINE) 5,000 UNITS/ML 1ML VIAL SQ SCH ×3 (15:00→22:00)
--- NOTE | 2017-12-01 15:15 | CON.ID ---
Consult Consult Specialty:: infectious diseases Reason for Consultation:: sepsis,fever - History of Present Illness Chief Complaint: fever,weakness History of Present Illness: 77 year old female (Barbadian speaking) with pmhx hepatocellular carcinoma (s/ p radiation therapy and recent embolization Wednesday 11/29), Hep C, ESRD on HD MWF , who presented to the ED from HD today. In HD she was noted to be hypotensive, tachycardic, with fever and complained on left sided abdominal pain. Per her son , she leaves for HD early 430am so there is no report as to how she was feeling in the morning. She completed 2hr and 46min on the machine today. She told the ED she felt nauseated but did not throw up. patient was also noted to be spiking fevers patient was admitted to the hospital and was given vanco and cefepime currently patient feels little better on work up patient was found to be septic and lso elevated lactic acidosis with weakness - History Source History Provided By: Medical Record Limitations to Obtaining History: Language Barrier - Past Medical History Cardio/Vascular: Yes: HTN, Hyperlipdemia Gastrointestinal: Yes: Other (hepatocellular ca s/p embolization) Hepatobiliary: Yes: Hepatitis C Renal/: Yes: Hemodialysis Endocrine: Yes: Diabetes Mellitus - Alcohol/Substance Use Hx Alcohol Use: No - Smoking History Smoking history: Never smoked Have you smoked in the past 12 months: No Home Medications - Allergies Allergies/Adverse Reactions: Allergies Allergy/AdvReac Type Severity Reaction Status Date / Time oxycodone Allergy Verified 12/01/17 12:26 - Home Medications Home Medications: Ambulatory Orders Amlodipine Besylate [Norvasc -] 10 mg PO DAILY 05/19/17 Carvedilol [Coreg] 6.25 mg PO BID 05/19/17 Cinacalcet HCl [Sensipar] 30 mg PO HS 05/19/17 Furosemide [Lasix] 80 mg PO DAILY 05/19/17 HYDROmorphone [Dilaudid -] 2 mg PO Q4H PRN 05/19/17 Losartan Potassium 25 mg PO DAILY 05/19/17 Sevelamer Carbonate [Renvela -] 800 mg PO TIDCM 05/19/17 Simvastatin [Zocor -] 10 mg PO HS 05/19/17 Acetaminophen 650 mg PO Q6H PRN 12/01/17 Prochlorperazine Maleate [Compazine] 10 mg PO Q8H PRN 12/01/17 Review of Systems - Review of Systems Constitutional: reports: Fever Eyes: reports: No Symptoms HENT: reports: No Symptoms Neck: reports: No Symptoms Cardiovascular: reports: No Symptoms Respiratory: reports: No Symptoms Gastrointestinal: reports: Abdominal Pain Genitourinary: reports: No Symptoms Musculoskeletal: reports: No Symptoms Integumentary: reports: No Symptoms Neurological: reports: No Symptoms Endocrine: reports: No Symptoms Hematology/Lymphatic: reports: No Symptoms Psychiatric: reports: No Symptoms Physical Exam Vital Signs: Vital Signs Temperature 99.8 F H 12/01/17 13:42 Pulse Rate 90 12/01/17 12:17 Respiratory Rate 18 12/01/17 12:17 Blood Pressure 116/55 12/01/17 12:17 O2 Sat by Pulse Oximetry (%) 98 12/01/17 12:17 Constitutional: Yes: No Distress, Calm, Thin Eyes: Yes: Conjunctiva Clear Neck: Yes: Supple, Trachea Midline Cardiovascular: Yes: Regular Rate and Rhythm, Murmur (systolic) Respiratory: Yes: Regular, CTA Bilaterally Gastrointestinal: Yes: Normal Bowel Sounds, Soft Musculoskeletal: Yes: WNL Extremities: Yes: WNL Integumentary: Yes: Other (left avf) Neurological: Yes: Alert Psychiatric: Yes: Alert Labs: CBC, BMP 12/01/17 10:16 12/01/17 10:16 Imaging - Results Chest X-ray: Report Reviewed, Image Reviewed X-ray: Report Reviewed, Image Reviewed Assessment/Plan patient symptoms could be due to multiple causes,including bacterial infection and also could be due to recent embolization patient has received abx already Imaging - Results Chest X-ray: Report Reviewed (new congestive changes), Image Reviewed Cat Scan: Pending Problem List - Problems (1) Systemic inflammatory response syndrome (SIRS) Code(s): R65.10 - SIRS OF NON-INFECTIOUS ORIGIN W/O ACUTE ORGAN DYSFUNCTION (2) Diabetes Code(s): E11.9 - TYPE 2 DIABETES MELLITUS WITHOUT COMPLICATIONS (3) ESRD (end stage renal disease) on dialysis Code(s): N18.6 - END STAGE RENAL DISEASE; Z99.2 - DEPENDENCE ON RENAL DIALYSIS (4) HLD (hyperlipidemia) Code(s): E78.5 - HYPERLIPIDEMIA, UNSPECIFIED (5) HTN (hypertension) Code(s): I10 - ESSENTIAL (PRIMARY) HYPERTENSION (6) Hepatocellular carcinoma Code(s): C22.0 - LIVER CELL CARCINOMA Assessment/Plan Assessment: 77 year old female with HCC s/p ablation, ESRD (MWF), HTN, HLD, DM ( no meds) admitted with fever and tachycardia 1.await for cx result repeat lactic acid follow fevers hydration rest continue current mgmt
[2017-12-01] MEDS: INSULIN SLIDING SCALE (NOVOLOG) 1 VIAL SQ SCH ×2 (16:19→22:00)
[2017-12-01] MEDS: SEVELAMER CARBONATE 800 MG TAB (FP) PO SCH (17:43)
--- NOTE | 2017-12-01 19:51 | EKG ---
Test Reason : Blood Pressure : / mmHG Vent. Rate : 109 BPM Atrial Rate : 109 BPM P-R Int : 188 ms QRS Dur : 084 ms QT Int : 340 ms P-R-T Axes : 073 -29 101 degrees QTc Int : 457 ms SINUS TACHYCARDIA WITH OCCASIONAL PREMATURE VENTRICULAR COMPLEXES NONSPECIFIC ST AND T WAVE ABNORMALITY ABNORMAL ECG WHEN COMPARED WITH ECG OF 14-JUN-2017 11:05, PREMATURE VENTRICULAR COMPLEXES ARE NOW PRESENT T WAVE INVERSION LESS EVIDENT IN LATERAL LEADS QT HAS SHORTENED Confirmed by DOUGLAS PAULINO, EBENEZER ([id number]) on 12/01/2017 7:50:40 PM Referred By: Confirmed By:EBENEZER COLE MD
[2017-12-02] MEDS: HEPARIN NA (PORCINE) 5,000 UNITS/ML 1ML VIAL SQ SCH ×2 (05:26→13:24)
[2017-12-02] MEDS: INSULIN SLIDING SCALE (NOVOLOG) 1 VIAL SQ SCH ×2 (06:07→11:52)
[2017-12-02 07:56] LABS: HEMATOCRIT 28.5 % (32.4-45.2); HEMOGLOBIN 9.6 GM/dL (10.7-15.3); MCH 35.1 pg (25.7-33.7); MCHC 33.5 g/dl (32.0-36.0); MEAN CELL VOLUME 104.7 fl (80-96); MEAN PLT VOLUME 9.6 fl (7.5-11.1); PLATELET COUNT 100 K/MM3 (134-434); RBC 2.72 M/mm3 (3.60-5.2); RDW 16.6 % (11.6-15.6); WHITE BLOOD COUNT 11.5 K/mm3 (4.0-10.0)
[2017-12-02 08:56] LABS: ALBUMIN 2.4 g/dl (3.4-5.0); ANION GAP 9 (8-16); BLOOD UREA NITROGEN 35 mg/dL (7-18); CALCIUM 8.3 mg/dL (8.5-10.1); CHLORIDE 97 mmol/L (98-107); CO2 27 mmol/L (21-32); GLUCOSE,RANDOM 93 mg/dL (74-106); MAGNESIUM 2.6 mg/dL (1.8-2.4); POTASSIUM 4.4 mmol/L (3.5-5.1); SODIUM 133 mmol/L (136-145)
[2017-12-02 08:59] LABS: ALK PHOS 271 U/L (45-117); BILIRUBIN,TOTAL 1.5 mg/dL (0.2-1.0); CREATININE 4.5 mg/dL (0.55-1.02); PHOSPHOROUS 4.6 mg/dL (2.5-4.9)
[2017-12-02 09:00] LABS: SGOT/AST 929 U/L (15-37); SGPT/ALT 477 U/L (12-78)
[2017-12-02] MEDS: SEVELAMER CARBONATE 800 MG TAB (FP) PO SCH ×2 (09:18→12:52)
[2017-12-02 09:31] LABS: MACROCYTOSIS 2+; PLATELET ESTIMATE DECREASED
[2017-12-02] MEDS ORDERED: CEFEPIME HCL/D5W 1 GM/50 ML PREMIX BAG IVPB SCH (10:00)
--- NOTE | 2017-12-02 14:14 | PN ---
Physical Exam: SUBJECTIVE: Patient seen and examined OBJECTIVE: Vital Signs Period Temp Pulse Resp BP Sys/Landry Pulse Ox Last 24 Hr 98.0 F-99.6 F 84-98 18-20 92-135/48-72 95-98 PE Neuro: alert, awake, cn 2-12intact Pulm: diminished bases, crackles +NC CV: s1 s2 rrr 3/6 murmur Abd: s nt nd + bs Laboratory Results - last 24 hr 12/01/17 12/01/17 12/01/17 13:20 15:45 17:20 WBC RBC Hgb Hct MCV MCH MCHC RDW Plt Count MPV Neutrophils % Neutrophils % (Manual) Band Neutrophils % Lymphocytes % Lymphocytes % (Manual) Monocytes % (Manual) Eosinophils % (Manual) Basophils % (Manual) Myelocytes % (Man) Promyelocytes % (Man) Blast Cells % (Manual) Nucleated RBC % Metamyelocytes Platelet Estimate Macrocytosis Sodium Potassium Chloride Carbon Dioxide Anion Gap BUN Creatinine Creat Clearance w eGFR POC Glucometer Random Glucose Lactic Acid 3.8 H* 2.2 H* Calcium Phosphorus Magnesium Total Bilirubin AST ALT Alkaline Phosphatase Creatine Kinase Troponin I 0.09 H Total Protein Albumin 12/01/17 12/01/17 12/02/17 17:20 21:07 05:30 WBC RBC Hgb Hct MCV MCH MCHC RDW Plt Count MPV Neutrophils % Neutrophils % (Manual) Band Neutrophils % Lymphocytes % Lymphocytes % (Manual) Monocytes % (Manual) Eosinophils % (Manual) Basophils % (Manual) Myelocytes % (Man) Promyelocytes % (Man) Blast Cells % (Manual) Nucleated RBC % Metamyelocytes Platelet Estimate Macrocytosis Sodium Potassium Chloride Carbon Dioxide Anion Gap BUN Creatinine Creat Clearance w eGFR POC Glucometer 205 174 Random Glucose Lactic Acid Calcium Phosphorus Magnesium Total Bilirubin AST ALT Alkaline Phosphatase Creatine Kinase 44 Troponin I 0.09 H Total Protein Albumin 12/02/17 12/02/17 12/02/17 06:45 06:45 06:45 WBC 11.5 H RBC 2.72 L Hgb 9.6 L D Hct 28.5 L MCV 104.7 H MCH 35.1 H MCHC 33.5 RDW 16.6 H Plt Count 100 L D MPV 9.6 Neutrophils % No Result Required. Neutrophils % (Manual) 77.2 Band Neutrophils % 0.0 Lymphocytes % No Result Required. Lymphocytes % (Manual) 4.0 L D Monocytes % (Manual) 18 H Eosinophils % (Manual) 1.0 Basophils % (Manual) 0.0 Myelocytes % (Man) 0 Promyelocytes % (Man) 0 Blast Cells % (Manual) 0 Nucleated RBC % 0 Metamyelocytes 0 Platelet Estimate Decreased Macrocytosis 2+ Sodium 133 L Potassium 4.4 Chloride 97 L Carbon Dioxide 27 Anion Gap 9 BUN 35 H Creatinine 4.5 H Creat Clearance w eGFR 9.48 POC Glucometer Random Glucose 93 Lactic Acid Calcium 8.3 L Phosphorus 4.6 Magnesium 2.6 H Total Bilirubin 1.5 H AST 929 H ALT 477 H Alkaline Phosphatase 271 H Creatine Kinase 35 Troponin I 0.07 H Total Protein 7.0 Albumin 2.4 L Active Medications Generic Name Dose Route Start Last Admin Trade Name Freq PRN Reason Stop Dose Admin Acetaminophen 650 mg 12/01/17 12:58 12/02/17 09:26 Tylenol - PO 650 mg Q6H PRN Administration FEVER Cefepime HCl 1 gm 12/02/17 10:00 12/02/17 09:18 Maxipime 1 Gm Premix Ivpb IVPB 1 gm DAILY JOVANNY Administration Heparin Sodium (Porcine) 5,000 unit 12/01/17 12:45 12/02/17 13:24 Heparin - SQ 5,000 unit TID JOVANNY Administration Hydromorphone HCl 2 mg 12/01/17 12:58 Dilaudid - PO Q4H PRN PAIN Insulin Aspart 1 vial 12/01/17 16:30 12/02/17 11:52 Novolog Vial Sliding Scale - SQ Not Given ACHS [facility] Protocol Morphine Sulfate 1 mg 12/01/17 12:34 Morphine Sulfate IVPUSH Q4H PRN PAIN LEVEL 1-5 Sevelamer Carbonate 800 mg 12/01/17 17:30 12/02/17 12:52 Renvela - PO 800 mg TIDCM JOVANNY Administration Assessment: 77 year old female with HCC s/p ablation, ESRD (MWF), HTN, HLD, DM ( no meds) admitted with fever and tachycardia Plan: 1. Severe Sepsis with lactic acidosis - Lactic acid pending now - Caution with fluids, pt w pleural effusions - Improved today on cefepime, continue - Discussed with Dr. Roldan at [facility], if cultures remain negative and pt improving , can DC home with instructions to follow up at [facility] if worsens over weekend - BC NGTD - Trend fever curve - D/w ID 2. ESRD on HD MWF - HD tomorrow - HD per renal - Check phos levels - Cont renvela 3. Elevated trop - Cycle trop #2 @ 1600 - Possibly due to sepsis, also pt has decompensated liver and no renal function 4. HTN - Hold BP meds at this time d/t sepsis 5. HCC - s/p ablation 11/29 - Dr. Kalyn Roldan [phone] - Pt has been accepted to [facility] for transfer bed unavailable at this time - CTAP pending 6. DM II - ISS, BGM ACHS 7. DVT - Heparin sq Visit type Problem List - Problems (1) Systemic inflammatory response syndrome (SIRS) Code(s): R65.10 - SIRS OF NON-INFECTIOUS ORIGIN W/O ACUTE ORGAN DYSFUNCTION (2) Diabetes Code(s): E11.9 - TYPE 2 DIABETES MELLITUS WITHOUT COMPLICATIONS (3) ESRD (end stage renal disease) on dialysis Code(s): N18.6 - END STAGE RENAL DISEASE; Z99.2 - DEPENDENCE ON RENAL DIALYSIS (4) HLD (hyperlipidemia) Code(s): E78.5 - HYPERLIPIDEMIA, UNSPECIFIED (5) HTN (hypertension) Code(s): I10 - ESSENTIAL (PRIMARY) HYPERTENSION (6) Hepatocellular carcinoma Code(s): C22.0 - LIVER CELL CARCINOMA
--- NOTE | 2017-12-02 14:37 | PN ---
Progress Note, Physician History of Present Illness: patient stable son in the room has remained afebrile comfortable - Current Medication List Current Medications: Active Medications Acetaminophen (Tylenol -) 650 mg PO Q6H PRN PRN Reason: FEVER Last Admin: 12/02/17 09:26 Dose: 650 mg Cefepime HCl (Maxipime 1 Gm Premix Ivpb) 1 gm IVPB DAILY [facility] Last Admin: 12/02/17 09:18 Dose: 1 gm Heparin Sodium (Porcine) (Heparin -) 5,000 unit SQ TID [facility] Last Admin: 12/02/17 13:24 Dose: 5,000 unit Hydromorphone HCl (Dilaudid -) 2 mg PO Q4H PRN PRN Reason: PAIN Insulin Aspart (Novolog Vial Sliding Scale -) 1 vial SQ ACHS [facility] PRN Reason: Protocol Last Admin: 12/02/17 11:52 Dose: Not Given Morphine Sulfate (Morphine Sulfate) 1 mg IVPUSH Q4H PRN PRN Reason: PAIN LEVEL 1-5 Sevelamer Carbonate (Renvela -) 800 mg PO TIDCM [facility] Last Admin: 12/02/17 12:52 Dose: 800 mg - Objective Vital Signs: Vital Signs Temperature 99.6 F 12/02/17 09:27 Pulse Rate 90 12/02/17 09:27 Respiratory Rate 18 12/02/17 09:27 Blood Pressure 126/65 12/02/17 09:27 O2 Sat by Pulse Oximetry (%) 96 12/02/17 09:27 Constitutional: Yes: No Distress, Calm Cardiovascular: Yes: Regular Rate and Rhythm, Murmur Respiratory: Yes: Regular, CTA Bilaterally Gastrointestinal: Yes: Normal Bowel Sounds, Soft Musculoskeletal: Yes: WNL Extremities: Yes: WNL Neurological: Yes: Alert Psychiatric: Yes: Alert Labs: CBC, BMP 12/02/17 06:45 12/02/17 06:45 INR, PTT INR 1.24 (0.82-1.09) H 12/01/17 10:16 - ....Imaging Cat Scan: Report Reviewed, Image Reviewed Assessment/Plan Problem List - Problems (1) Systemic inflammatory response syndrome (SIRS) Code(s): R65.10 - SIRS OF NON-INFECTIOUS ORIGIN W/O ACUTE ORGAN DYSFUNCTION (2) Diabetes Code(s): E11.9 - TYPE 2 DIABETES MELLITUS WITHOUT COMPLICATIONS (3) ESRD (end stage renal disease) on dialysis Code(s): N18.6 - END STAGE RENAL DISEASE; Z99.2 - DEPENDENCE ON RENAL DIALYSIS (4) HLD (hyperlipidemia) Code(s): E78.5 - HYPERLIPIDEMIA, UNSPECIFIED (5) HTN (hypertension) Code(s): I10 - ESSENTIAL (PRIMARY) HYPERTENSION (6) Hepatocellular carcinoma Code(s): C22.0 - LIVER CELL CARCINOMA all cx negative so far patient has been stable and afebrile Assessment/Plan Assessment: 77 year old female with HCC s/p ablation, ESRD (MWF), HTN, HLD, DM ( no meds) admitted with fever and tachycardia continue current mgmt dialysis tomorrow if patient remains stable will change to oral abx for few more days nutrition rest as per the team
[2017-12-02] MEDS ORDERED: SODIUM CHLORIDE 250 ML IV PRN ×2 (15:16→15:17)
--- NOTE | 2017-12-02 15:16 | PN ---
Progress Note (short form) - Note Progress Note: Renal follow up for ESRD on HD Pt seen and examined at the bedside awake and alert son at the bedside no abd pain denies any sob Vital Signs Temperature 99.6 F 12/02/17 09:27 Pulse Rate 90 12/02/17 09:27 Respiratory Rate 18 12/02/17 09:27 Blood Pressure 126/65 12/02/17 09:27 O2 Sat by Pulse Oximetry (%) 96 12/02/17 09:27 Intake & Output 11/29/17 11/30/17 12/01/17 12/02/17 23:59 23:59 23:59 23:59 Weight 54.431 kg NAD MMM, No JVD RRR Dec BS at lung bases + mild abd tenderness no rebound or guarding No LE edema, clubbing or cyanosis + AVF left arm CBC, BMP 12/02/17 06:45 12/02/17 06:45 Current Medications Acetaminophen (Tylenol -) 650 mg PO Q6H PRN PRN Reason: FEVER Last Admin: 12/02/17 09:26 Dose: 650 mg Cefepime HCl (Maxipime 1 Gm Premix Ivpb) 1 gm IVPB DAILY [facility] Last Admin: 12/02/17 09:18 Dose: 1 gm Heparin Sodium (Porcine) (Heparin -) 5,000 unit SQ TID [facility] Last Admin: 12/02/17 13:24 Dose: 5,000 unit Hydromorphone HCl (Dilaudid -) 2 mg PO Q4H PRN PRN Reason: PAIN Insulin Aspart (Novolog Vial Sliding Scale -) 1 vial SQ ACHS [facility] PRN Reason: Protocol Last Admin: 12/02/17 11:52 Dose: Not Given Morphine Sulfate (Morphine Sulfate) 1 mg IVPUSH Q4H PRN PRN Reason: PAIN LEVEL 1-5 Sevelamer Carbonate (Renvela -) 800 mg PO TIDCM [facility] Last Admin: 12/02/17 12:52 Dose: 800 mg 77 year old woman with PMhx of ESRD on HD (MWF), HCC s/p Ablation and Radiation with recurrence, DM not on Meds presented from dialysis unit with fever and tachycardia. #Sepsis Syndrome #Lactic acidosis #ESRD on HD #HCC #Anemia in setting of CKD #Renal Osteodystrophy No acute indication for dialysis today, next planned dialysis is tomorrow with UF as toleated Cultures w/o growth to date, CT of Abd w/o overt abcess or collection continue emperic Abx for now fevers now resolved, WBC improving Lactic acidosis is improved keep MAP > 65 continue renvela TID with meals Thank you Will follow Nelson Hinds DO
[2017-12-02 15:38] VITALS: BP 115/57; PULSE 82; TEMP 98.2
--- NOTE | 2017-12-02 17:04 | DS ---
Physical Exam: SUBJECTIVE: Patient seen and examined. Pt says she feels better than yesterday, still with llq pain OBJECTIVE: Vital Signs Period Temp Pulse Resp BP Sys/Landry Pulse Ox Last 24 Hr 98.0 F-99.6 F 82-98 18-20 111-135/53-72 95-96 PE Neuro: alert, awake, cn 2-12intact Pulm: bi basilar crackles CV: s1 s2 rrr 2/6 systolic murmur Abd: LLQ tenderness soft Skin: r groin dressing Ext: no le edema, RUE AVF +thrill Laboratory Results - last 24 hr 12/01/17 12/01/17 12/01/17 15:45 17:20 17:20 WBC RBC Hgb Hct MCV MCH MCHC RDW Plt Count MPV Neutrophils % Neutrophils % (Manual) Band Neutrophils % Lymphocytes % Lymphocytes % (Manual) Monocytes % (Manual) Eosinophils % (Manual) Basophils % (Manual) Myelocytes % (Man) Promyelocytes % (Man) Blast Cells % (Manual) Nucleated RBC % Metamyelocytes Platelet Estimate Macrocytosis Sodium Potassium Chloride Carbon Dioxide Anion Gap BUN Creatinine Creat Clearance w eGFR POC Glucometer Random Glucose Lactic Acid 2.2 H* Calcium Phosphorus Magnesium Total Bilirubin AST ALT Alkaline Phosphatase Creatine Kinase 44 Troponin I 0.09 H 0.09 H Total Protein Albumin 12/01/17 12/02/17 12/02/17 21:07 05:30 06:45 WBC 11.5 H RBC 2.72 L Hgb 9.6 L D Hct 28.5 L MCV 104.7 H MCH 35.1 H MCHC 33.5 RDW 16.6 H Plt Count 100 L D MPV 9.6 Neutrophils % No Result Required. Neutrophils % (Manual) 77.2 Band Neutrophils % 0.0 Lymphocytes % No Result Required. Lymphocytes % (Manual) 4.0 L D Monocytes % (Manual) 18 H Eosinophils % (Manual) 1.0 Basophils % (Manual) 0.0 Myelocytes % (Man) 0 Promyelocytes % (Man) 0 Blast Cells % (Manual) 0 Nucleated RBC % 0 Metamyelocytes 0 Platelet Estimate Decreased Macrocytosis 2+ Sodium Potassium Chloride Carbon Dioxide Anion Gap BUN Creatinine Creat Clearance w eGFR POC Glucometer 205 174 Random Glucose Lactic Acid Calcium Phosphorus Magnesium Total Bilirubin AST ALT Alkaline Phosphatase Creatine Kinase Troponin I Total Protein Albumin 12/02/17 12/02/17 12/02/17 06:45 06:45 12:55 WBC RBC Hgb Hct MCV MCH MCHC RDW Plt Count MPV Neutrophils % Neutrophils % (Manual) Band Neutrophils % Lymphocytes % Lymphocytes % (Manual) Monocytes % (Manual) Eosinophils % (Manual) Basophils % (Manual) Myelocytes % (Man) Promyelocytes % (Man) Blast Cells % (Manual) Nucleated RBC % Metamyelocytes Platelet Estimate Macrocytosis Sodium 133 L Potassium 4.4 Chloride 97 L Carbon Dioxide 27 Anion Gap 9 BUN 35 H Creatinine 4.5 H Creat Clearance w eGFR 9.48 POC Glucometer 88 Random Glucose 93 Lactic Acid Calcium 8.3 L Phosphorus 4.6 Magnesium 2.6 H Total Bilirubin 1.5 H AST 929 H ALT 477 H Alkaline Phosphatase 271 H Creatine Kinase 35 Troponin I 0.07 H Total Protein 7.0 Albumin 2.4 L 12/02/17 13:18 WBC RBC Hgb Hct MCV MCH MCHC RDW Plt Count MPV Neutrophils % Neutrophils % (Manual) Band Neutrophils % Lymphocytes % Lymphocytes % (Manual) Monocytes % (Manual) Eosinophils % (Manual) Basophils % (Manual) Myelocytes % (Man) Promyelocytes % (Man) Blast Cells % (Manual) Nucleated RBC % Metamyelocytes Platelet Estimate Macrocytosis Sodium Potassium Chloride Carbon Dioxide Anion Gap BUN Creatinine Creat Clearance w eGFR POC Glucometer Random Glucose Lactic Acid 1.1 Calcium Phosphorus Magnesium Total Bilirubin AST ALT Alkaline Phosphatase Creatine Kinase Troponin I Total Protein Albumin HOSPITAL COURSE: Date of Admission:12/01/17 Date of Discharge: 12/02/17 Minutes to complete discharge: 37 Discharge Summary Reason For Visit: HEPATOCELLULAR CARCINOMA,POSTOPERATIVE FEVER Current Active Problems Postsurgical fever (Acute) Systemic inflammatory response syndrome (SIRS) (Acute) Hospital Course: Initial Hospital Course: Briefly, this 77 year old female ([place]ic speaking) with pmhx hepatocellular carcinoma (s/p radiation therapy and recent embolization Wednesday 11/29), Hep C, ESRD on HD MWF, presented to the ED from HD with hypotension, tachycardia, fever and left sided abdominal pain. She completed 2hr and 46min on the machine. Per EMR, the patient had aortic stenosis on last echo in May 2017 with normal LV at the time. Subsequent Hospital Course/Progress Note/ DC summary: Assessment: 77 year old female with HCC s/p ablation, ESRD (MWF), HTN, HLD, DM ( no meds) admitted with fever and tachycardia Plan: 1. Severe Sepsis with lactic acidosis - Possibly due to ablation and hcc combination - Lactic acid wnl - WBC improved - Continue cefepime - BC NGTD - For transfer to [facility] [place] 2. ESRD on HD MWF - HD tomorrow with WF - Check phos levels - Cont renvela 3. Elevated trop - Trop down trended - Possibly due to sepsis, also pt has decompensated liver and no renal function 4. HTN - Hold BP meds at this time d/t sepsis 5. HCC - s/p ablation 11/29 - Dr. Kalyn Roldan [phone] - CTAP no overt abscess collection 6. DM II - ISS, BGM ACHS Dispo: - Transfer to [facility] [place] Condition: Guarded - Instructions Referrals: Mary Anne Mcbride MD [Primary Care Provider] - Disposition: TRANSFER ACUTE CARE/OTHER HOSP - Home Medications Comprehensive Discharge Medication List: Ambulatory Orders Amlodipine Besylate [Norvasc -] 10 mg PO DAILY 05/19/17 Carvedilol [Coreg] 6.25 mg PO BID 05/19/17 Cinacalcet HCl [Sensipar] 30 mg PO HS 05/19/17 Furosemide [Lasix] 80 mg PO DAILY 05/19/17 HYDROmorphone [Dilaudid -] 2 mg PO Q4H PRN 05/19/17 Losartan Potassium 25 mg PO DAILY 05/19/17 Sevelamer Carbonate [Renvela -] 800 mg PO TIDCM 05/19/17 Simvastatin [Zocor -] 10 mg PO HS 05/19/17 Acetaminophen 650 mg PO Q6H PRN 12/01/17 Prochlorperazine Maleate [Compazine] 10 mg PO Q8H PRN 12/01/17 Problem List - Problems (1) Systemic inflammatory response syndrome (SIRS) Code(s): R65.10 - SIRS OF NON-INFECTIOUS ORIGIN W/O ACUTE ORGAN DYSFUNCTION (2) Diabetes Code(s): E11.9 - TYPE 2 DIABETES MELLITUS WITHOUT COMPLICATIONS (3) ESRD (end stage renal disease) on dialysis Code(s): N18.6 - END STAGE RENAL DISEASE; Z99.2 - DEPENDENCE ON RENAL DIALYSIS (4) HLD (hyperlipidemia) Code(s): E78.5 - HYPERLIPIDEMIA, UNSPECIFIED (5) HTN (hypertension) Code(s): I10 - ESSENTIAL (PRIMARY) HYPERTENSION (6) Hepatocellular carcinoma Code(s): C22.0 - LIVER CELL CARCINOMA This patient is new to me today: No Emergency Visit: Yes ED Registration Date: 12/01/17 Care time: The patient presented to the Emergency Department on the above date and was hospitalized for further evaluation of their emergent condition. Critical Care patient: No - Discharge Referral Referred to [facility] No
[2017-12-03] MEDS ORDERED: EPOETIN ALFA 10,000 UNIT/1 ML VIAL IVPUSH ONE (06:00)
== END 2017-12-02 18:29 | disposition short-term general hospital (02) | DRG 862 ==
LOC: JER 09:38 → JERBED 11:44 → J4W 13:57
PROVIDERS: ADMIT Internal Medicine; ATTEND Nurse Practitioner Acute Care
DX: T81.4XXA Infection following a procedure, initial encounter (principal); N18.6 End stage renal disease; A41.89 Other specified sepsis; R65.20 Severe sepsis without septic shock; C22.0 Liver cell carcinoma; I12.0 Hypertensive chronic kidney disease with stage 5 chronic kidney disease or end stage renal disease; J90 Pleural effusion, not elsewhere classified; E87.2 Acidosis; D64.9 Anemia, unspecified; E11.22 Type 2 diabetes mellitus with diabetic chronic kidney disease; E78.00 Pure hypercholesterolemia, unspecified; R00.0 Tachycardia, unspecified; B19.20 Unspecified viral hepatitis C without hepatic coma; R50.9 Fever, unspecified; D63.8 Anemia in other chronic diseases classified elsewhere; N25.0 Renal osteodystrophy; Y83.9 Surgical procedure, unspecified as the cause of abnormal reaction of the patient, or of later complication, without mention of misadventure at the time of the procedure; R74.8 Abnormal levels of other serum enzymes; Z99.2 Dependence on renal dialysis
CPT/HCPCS: 36415; 71045-TC-FY; 74176-TC; 80053; 82550; 82553; 82803; 82962; 83605; 83735; 83880; 84100; 84484; 85025; 85610; 85730; 87040; 93005; 93010; 99285-25; J0131; J1644; J7030